=== PATIENT | male | born 1935 | race Asian ===

== ENCOUNTER → 2016-11-03 | Outpatient (CLI) | payer MEDICARE, OTHER | END | disposition home or self-care (01) | LOC: RADPV 13:58 | PROVIDERS: ATTEND Internal Medicine | DX: I51.7 Cardiomegaly (principal); I70.0 Atherosclerosis of aorta | CPT/HCPCS: 71020 ==

== ENCOUNTER → 2017-07-03 | Outpatient (CLI) | payer MEDICARE, OTHER ==
[~2017-07-03] MED LIST: ACET-66 PO; ACLI400A2 IH; ADV250 IH; AMLO2.5T2 PO; APIX2.5T PO; ATOR40TA28 PO; BACL10TA PO; CYAN100 PO; CYAN50TA2 PO; FINA5TAB41 PO; FOLI1TAB15 PO; FURO-151 PO; FURO20TA4 PO; HYDR-4172 PO; IPRA4AER IH; ISOS30TA6 PO; LACT30L PO; LEVA15HF3 IH; PANT40TA25 PO; SIMV20TA6 PO; TAMS0.4C32 PO; TELM40 PO; VITAD1000 PO
== END | disposition home or self-care (01) ==
LOC: RADPV 10:29
PROVIDERS: ATTEND Internal Medicine
DX: I51.7 Cardiomegaly (principal); J90 Pleural effusion, not elsewhere classified; I70.0 Atherosclerosis of aorta; M47.814 Spondylosis without myelopathy or radiculopathy, thoracic region; M41.84 Other forms of scoliosis, thoracic region; Z98.890 Other specified postprocedural states; Z95.1 Presence of aortocoronary bypass graft
CPT/HCPCS: 71020

== ENCOUNTER 2017-07-30 13:51 | Inpatient (IN) | payer MEDICARE, OTHER ==
[~2017-07-30] VITALS: Ht 170.2 cm; Wt 55.6 kg
[2017-07-30] MEDS ORDERED: AMLO2.5T2 PO (14:23)
[2017-07-30] MEDS ORDERED: TELM40 PO (14:23)
[2017-07-30] MEDS ORDERED: SIMV20TA6 PO (14:23)
[2017-07-30] MEDS ORDERED: CYAN50TA2 PO (14:23)
[2017-07-30] MEDS ORDERED: FURO20TA4 PO (14:23)
[2017-07-30] MEDS ORDERED: VITAD1000 PO (14:23)
[2017-07-30] MEDS ORDERED: FOLI1TAB15 PO (14:23)
[2017-07-30] MEDS ORDERED: APIX2.5T PO (14:23)
[2017-07-30] MEDS ORDERED: LEVA15HF3 IH (14:23)
[2017-07-30 14:53] LABS: BASOPHILS % (AUTO) 0.1 % (0.0-2.0); EOSINOPHILS # (AUTO) 0.03 K/uL (0.00-0.70); EOSINOPHILS % (AUTO) 0.57 % (1.0-6.0); LYMPHOCYTES # (AUTO) 0.5 K/uL (1.0-4.8); LYMPHOCYTES % (AUTO) 8.7 % (22.0-44.0); MEAN CORPUSCULAR HEMOGLOBIN 31.4 pg (26.0-34.0); MEAN CORPUSCULAR HGB CONC 33.3 G/dL (31.0-37.0); MEAN CORPUSCULAR VOLUME 95 fL (80-100); MONOCYTES # (AUTO) 0.9 K/uL (0.1-1.0); MONOCYTES % (AUTO) 16.3 % (2.0-9.0); NEUTROPHILS % (AUTO) 74.5 % (40.0-70.0); RED BLOOD CELL COUNT(AUTO) 3.17 MIL/uL (4.50-5.90); RED CELL DISTRIBUTION WIDTH 15.8 % (11.5-14.5); WHITE BLOOD COUNT (AUTO) 5.3 K/uL (4.5-11.0)
[2017-07-30 15:06] LABS: ANION GAP 10 mmol/L (8-16); CALCIUM, TOTAL 8.8 mg/dL (8.8-10.5); CARBON DIOXIDE 24 mmol/L (22-29); CHLORIDE 103 mmol/L (98-107); CREATININE 1.57 mg/dL (0.60-1.30); GLOMERULAR FILTR. RATE CALC 43 mL/min (>60); POTASSIUM 4.5 mmol/L (3.5-5.1); SODIUM SERUM 137 mmol/L (136-145); UREA NITROGEN, BLOOD 24 mg/dL (7-18)
[2017-07-30 15:14] LABS: B-TYPE NATRIURETIC PEPTIDE 603 pg/mL (0-100)
[2017-07-30 15:24] LABS: PLATELET COUNT (AUTO) 79 K/uL (150-450)
[2017-07-30] MEDS ORDERED: ALBUTEROL SULFATE 2.5 MG/0.5 ML NEB SOLUTION NEB ONE (15:30)
[2017-07-30] MEDS ORDERED: IPRATROPIUM BROMIDE 0.5 MG/2.5 ML NEB SOLUTION NEB ONE (15:30)
[2017-07-30 15:31] LABS: ALANINE AMINOTRANSFERASE 38 U/L (12-78); ALBUMIN 3.8 g/dL (3.4-5.0); ASPARTATE AMINOTRANSFERASE 49 U/L (15-37); CREATINE KINASE, TOTAL 168 U/L (39-308); TOTAL PROTEIN, SERUM 8.6 g/dL (6.4-8.2)
[2017-07-30] MEDS ORDERED: 0.9% SODIUM CHLORIDE 5 ML NEB SOLUTION NEB ONE (15:34)
[2017-07-30 15:37] LABS: ADD UA MICROSCOPIC YES; APPEARANCE,URINE CLEAR (CLEAR); GLUCOSE, URINE (UA) NEGATIVE (NEGATIVE); KETONES,URINE NEGATIVE (NEGATIVE); LEUKOCYTE ESTERASE ,URINE NEGATIVE (NEGATIVE); OCCULT BLOOD,URINE TRACE (NEGATIVE); PROTEIN,URINE NEGATIVE (NEGATIVE)
[2017-07-30] MEDS ORDERED: CYAN100 PO (15:42)
[2017-07-30 15:43] LABS: SQUAMOUS EPITHELIAL CELL,UR Rare /LPF (None Seen)
[2017-07-30 15:46] LABS: RBC,URINE 0-2 /HPF (0-2); WBC,URINE 0-2 /HPF (0-5)
[2017-07-30] MEDS ORDERED: FUROSEMIDE 40 MG/4 ML VIAL IVP ONE (16:15)
[2017-07-30] MEDS ORDERED: 0.9% SODIUM CHLORIDE 10 ML SYRINGE IVP PRN (16:45)
[2017-07-30] MEDS ORDERED: ACETAMINOPHEN 325 MG TABLET PO PRN (16:45)
[2017-07-30] MEDS ORDERED: ONDANSETRON HCL 4 MG/2 ML VIAL IVP PRN (16:45)
[2017-07-30] MEDS ORDERED: ASPIRIN 81 MG CHEWABLE TABLET PO ONE (16:45)
[2017-07-30 18:02] VITALS: BP 151/70
[2017-07-30 19:25] VITALS: BP 100/44
[2017-07-30] MEDS: IPRATROPIUM BROMIDE 0.5 MG/2.5 ML NEB SOLUTION NEB SCH (21:44)
[2017-07-30] MEDS: ALBUTEROL SULFATE 2.5 MG/0.5 ML NEB SOLUTION NEB SCH (21:44)
[2017-07-30] MEDS: APIXABAN 2.5 MG TABLET PO SCH (22:08)
[2017-07-30 22:48] LABS: ADD UA MICROSCOPIC NO; APPEARANCE,URINE CLEAR (CLEAR); GLUCOSE, URINE (UA) NEGATIVE (NEGATIVE); KETONES,URINE NEGATIVE (NEGATIVE); LEUKOCYTE ESTERASE ,URINE NEGATIVE (NEGATIVE); OCCULT BLOOD,URINE NEGATIVE (NEGATIVE); PROTEIN,URINE NEGATIVE (NEGATIVE)
[2017-07-30 23:59] VITALS: BP 110/60
[2017-07-31] MEDS: IPRATROPIUM BROMIDE 0.5 MG/2.5 ML NEB SOLUTION NEB SCH ×4 (02:33→21:36)
[2017-07-31] MEDS: ALBUTEROL SULFATE 2.5 MG/0.5 ML NEB SOLUTION NEB SCH ×4 (02:33→21:36)
[2017-07-31 04:37] VITALS: BP 123/68
[2017-07-31 06:25] LABS: BASOPHILS # (AUTO) 0.02 K/uL (0.00-0.20); BASOPHILS % (AUTO) 0.4 % (0.0-2.0); EOSINOPHILS # (AUTO) 0.06 K/uL (0.00-0.70); EOSINOPHILS % (AUTO) 1.25 % (1.0-6.0); HEMATOCRIT 26.6 % (41-53); HEMOGLOBIN 8.8 g/dL (13.5-17.5); LYMPHOCYTES # (AUTO) 0.6 K/uL (1.0-4.8); LYMPHOCYTES % (AUTO) 12.2 % (22.0-44.0); MEAN CORPUSCULAR HEMOGLOBIN 31.3 pg (26.0-34.0); MEAN CORPUSCULAR VOLUME 95 fL (80-100); MONOCYTES # (AUTO) 0.9 K/uL (0.1-1.0); MONOCYTES % (AUTO) 18.4 % (2.0-9.0); NEUTROPHILS # (AUTO) 3.2 K/uL (1.8-7.7); NEUTROPHILS % (AUTO) 67.8 % (40.0-70.0); PLATELET COUNT (AUTO) 71 K/uL (150-450); RED BLOOD CELL COUNT(AUTO) 2.81 MIL/uL (4.50-5.90); WHITE BLOOD COUNT (AUTO) 4.7 K/uL (4.5-11.0)
[2017-07-31 06:32] LABS: BILIRUBIN,TOTAL 0.6 mg/dL (0.1-1.0); CALCIUM, TOTAL 8.2 mg/dL (8.8-10.5); CREATININE 1.61 mg/dL (0.60-1.30); POTASSIUM 4.4 mmol/L (3.5-5.1); TOTAL PROTEIN, SERUM 6.9 g/dL (6.4-8.2)
[2017-07-31] MEDS ORDERED: INFLUENZA VIRUS VACCINE QVS 2017-18 (3YR+)/PF 60 MCG/0.5 ML SYRINGE IM ONE (07:45)
[2017-07-31] MEDS: AmLODIPine BESYLATE 2.5 MG TABLET PO SCH (08:30)
[2017-07-31] MEDS: FOLIC ACID 1 MG TABLET PO SCH (08:31)
[2017-07-31] MEDS: TELMISARTAN 40 MG TABLET PO SCH (08:31)
[2017-07-31] MEDS: APIXABAN 2.5 MG TABLET PO SCH ×2 (08:31→20:17)
[2017-07-31] MEDS: SIMVASTATIN 20 MG TABLET PO SCH (08:31)
[2017-07-31] MEDS: CHOLECALCIFEROL (VIT D3) 1,000 UNITS TABLET PO SCH (08:31)
[2017-07-31 08:56] VITALS: BP 111/58
[2017-07-31] MEDS ORDERED: FUROSEMIDE 20 MG TABLET PO SCH (09:00)
[2017-07-31] MEDS: CYANOCOBALAMIN 100 MCG TABLET PO SCH (09:19)
[2017-07-31 09:29] LABS: BASOPHILS # (AUTO) 0.07 K/uL (0.00-0.20); BASOPHILS % (AUTO) 1.5 % (0.0-2.0); EOSINOPHILS # (AUTO) 0.04 K/uL (0.00-0.70); EOSINOPHILS % (AUTO) 0.89 % (1.0-6.0); HEMATOCRIT 27.1 % (41-53); LYMPHOCYTES # (AUTO) 0.6 K/uL (1.0-4.8); LYMPHOCYTES % (AUTO) 12.7 % (22.0-44.0); MEAN CORPUSCULAR HEMOGLOBIN 31.6 pg (26.0-34.0); MEAN CORPUSCULAR HGB CONC 33.3 G/dL (31.0-37.0); MEAN CORPUSCULAR VOLUME 95 fL (80-100); MONOCYTES # (AUTO) 0.8 K/uL (0.1-1.0); MONOCYTES % (AUTO) 15.6 % (2.0-9.0); NEUTROPHILS # (AUTO) 3.4 K/uL (1.8-7.7); NEUTROPHILS % (AUTO) 69.3 % (40.0-70.0); PLATELET COUNT (AUTO) 71 K/uL (150-450); RED BLOOD CELL COUNT(AUTO) 2.86 MIL/uL (4.50-5.90); RED CELL DISTRIBUTION WIDTH 15.6 % (11.5-14.5); WHITE BLOOD COUNT (AUTO) 4.8 K/uL (4.5-11.0)
[2017-07-31 10:19] LABS: PROCALCITONIN (PCT) 0.12 ng/mL (<0.50)
[2017-07-31 11:11] LABS: VITAMIN B12 LEVEL 664 pg/mL (211-911)
[2017-07-31 11:59] VITALS: BP 119/66
[2017-07-31] MEDS: FUROSEMIDE 20 MG/2 ML VIAL IVP SCH (15:42)
[2017-07-31 16:23] VITALS: BP 116/63
[2017-07-31] MEDS ORDERED: ZOLPIDEM TARTRATE 5 MG TABLET PO PRN (18:00)
[2017-07-31] MEDS ORDERED: IPRATROPIUM BROMIDE 0.5 MG/2.5 ML NEB SOLUTION NEB PRN (18:00)
[2017-07-31] MEDS ORDERED: ONDANSETRON HCL 4 MG/2 ML VIAL IVP PRN (18:00)
[2017-07-31] MEDS ORDERED: HYDROCODONE/ACETAMINOPHEN 5-325 MG TABLET PO PRN (18:00)
[2017-07-31] MEDS ORDERED: 0.9% SODIUM CHLORIDE 10 ML SYRINGE IVP PRN ×2 (18:00)
[2017-07-31] MEDS ORDERED: ALBUTEROL SULFATE 2.5 MG/0.5 ML NEB SOLUTION NEB PRN (18:00)
[2017-07-31] MEDS ORDERED: ACETAMINOPHEN 325 MG TABLET PO PRN (18:00)
[2017-07-31] MEDS: PANTOPRAZOLE SODIUM 40 MG DR TABLET PO SCH (18:12)
[2017-07-31] MEDS: DOCUSATE SODIUM 250 MG CAPSULE PO SCH (20:19)
[2017-07-31 21:16] VITALS: BP 139/59
[2017-08-01 01:14] VITALS: BP 130/65
[2017-08-01] MEDS: FUROSEMIDE 20 MG/2 ML VIAL IVP SCH ×3 (01:14→17:46)
[2017-08-01] MEDS: ALBUTEROL SULFATE 2.5 MG/0.5 ML NEB SOLUTION NEB SCH ×4 (02:00→19:48)
[2017-08-01] MEDS: IPRATROPIUM BROMIDE 0.5 MG/2.5 ML NEB SOLUTION NEB SCH ×4 (02:00→19:48)
[2017-08-01 05:51] VITALS: BP 124/70
[2017-08-01] MEDS: PANTOPRAZOLE SODIUM 40 MG DR TABLET PO SCH (06:00)
[2017-08-01 07:48] VITALS: BP 132/66
[2017-08-01] MEDS: AmLODIPine BESYLATE 2.5 MG TABLET PO SCH (09:02)
[2017-08-01] MEDS: SIMVASTATIN 20 MG TABLET PO SCH (09:02)
[2017-08-01] MEDS: FOLIC ACID 1 MG TABLET PO SCH (09:02)
[2017-08-01] MEDS: APIXABAN 2.5 MG TABLET PO SCH ×2 (09:02→20:24)
[2017-08-01] MEDS: DOCUSATE SODIUM 250 MG CAPSULE PO SCH ×3 (09:02→20:21)
[2017-08-01] MEDS: CYANOCOBALAMIN 100 MCG TABLET PO SCH (09:03)
[2017-08-01] MEDS: TELMISARTAN 40 MG TABLET PO SCH (09:03)
[2017-08-01] MEDS: CHOLECALCIFEROL (VIT D3) 1,000 UNITS TABLET PO SCH (09:03)
[2017-08-01 09:59] LABS: BASOPHILS % (AUTO) 0.4 % (0.0-2.0); EOSINOPHILS % (AUTO) 1.7 % (1.0-6.0); HEMATOCRIT 30.1 % (41-53); HEMOGLOBIN 10.2 g/dL (13.5-17.5); LYMPHOCYTES # (AUTO) 0.7 K/uL (1.0-4.8); LYMPHOCYTES % (AUTO) 12.7 % (22.0-44.0); MEAN CORPUSCULAR HEMOGLOBIN 31.5 pg (26.0-34.0); MEAN CORPUSCULAR VOLUME 93 fL (80-100); MONOCYTES # (AUTO) 0.7 K/uL (0.1-1.0); MONOCYTES % (AUTO) 11.9 % (2.0-9.0); NEUTROPHILS # (AUTO) 4.1 K/uL (1.8-7.7); NEUTROPHILS % (AUTO) 73.3 % (40.0-70.0); PLATELET COUNT (AUTO) 88 K/uL (150-450); RED BLOOD CELL COUNT(AUTO) 3.24 MIL/uL (4.50-5.90); RED CELL DISTRIBUTION WIDTH 15.7 % (11.5-14.5); WHITE BLOOD COUNT (AUTO) 5.6 K/uL (4.5-11.0)
[2017-08-01 10:27] LABS: CALCIUM, TOTAL 8.5 mg/dL (8.8-10.5); CHOL/HDL RATIO 1.6 (4.2-7.3); CREATININE 1.87 mg/dL (0.60-1.30); POTASSIUM 4.5 mmol/L (3.5-5.1); THYROID STIMULATING HORMONE 4.46 uIU/mL (0.36-3.74)
[2017-08-01 10:57] VITALS: BP 106/66
[2017-08-01 15:01] VITALS: BP 116/58
[2017-08-01 20:09] VITALS: BP 104/50
[2017-08-02] VITALS (7 sets, daily range): BP systolic 97–125; BP diastolic 48–72
[2017-08-02] MEDS: FUROSEMIDE 20 MG/2 ML VIAL IVP SCH ×3 (00:59→08:29)
[2017-08-02] MEDS: ALBUTEROL SULFATE 2.5 MG/0.5 ML NEB SOLUTION NEB SCH ×4 (01:39→20:28)
[2017-08-02] MEDS: IPRATROPIUM BROMIDE 0.5 MG/2.5 ML NEB SOLUTION NEB SCH ×4 (01:39→20:28)
[2017-08-02] MEDS: PANTOPRAZOLE SODIUM 40 MG DR TABLET PO SCH (05:56)
[2017-08-02 06:57] LABS: ALBUMIN 3.6 g/dL (3.4-5.0); BILIRUBIN,TOTAL 0.7 mg/dL (0.1-1.0); CALCIUM, TOTAL 8.7 mg/dL (8.8-10.5); CREATININE 2.01 mg/dL (0.60-1.30); POTASSIUM 4.6 mmol/L (3.5-5.1); TOTAL PROTEIN, SERUM 8.3 g/dL (6.4-8.2)
[2017-08-02] MEDS: CYANOCOBALAMIN 100 MCG TABLET PO SCH (08:29)
[2017-08-02] MEDS: FOLIC ACID 1 MG TABLET PO SCH (08:29)
[2017-08-02] MEDS: CHOLECALCIFEROL (VIT D3) 1,000 UNITS TABLET PO SCH (08:29)
[2017-08-02] MEDS: SIMVASTATIN 20 MG TABLET PO SCH (08:29)
[2017-08-02] MEDS: TELMISARTAN 40 MG TABLET PO SCH (08:29)
[2017-08-02] MEDS: APIXABAN 2.5 MG TABLET PO SCH ×2 (08:29→20:14)
[2017-08-02] MEDS: DOCUSATE SODIUM 250 MG CAPSULE PO SCH ×3 (08:29→20:14)
[2017-08-02] MEDS: AmLODIPine BESYLATE 2.5 MG TABLET PO SCH (09:00)
[2017-08-02] MEDS: FINASTERIDE 5 MG TABLET PO SCH (14:03)
[2017-08-02] MEDS: TAMSULOSIN HCL 0.4 MG CAPSULE PO SCH (14:03)
[2017-08-03] VITALS (7 sets, daily range): BP systolic 106–124; BP diastolic 53–63
[2017-08-03] MEDS: ALBUTEROL SULFATE 2.5 MG/0.5 ML NEB SOLUTION NEB SCH ×4 (02:00→19:52)
[2017-08-03] MEDS: IPRATROPIUM BROMIDE 0.5 MG/2.5 ML NEB SOLUTION NEB SCH ×4 (02:00→19:52)
[2017-08-03] MEDS: PANTOPRAZOLE SODIUM 40 MG DR TABLET PO SCH (06:08)
[2017-08-03 07:20] LABS: BILIRUBIN,TOTAL 0.5 mg/dL (0.1-1.0); CALCIUM, TOTAL 8.2 mg/dL (8.8-10.5); CREATININE 1.79 mg/dL (0.60-1.30); MAGNESIUM 2.4 mg/dL (1.80-2.40); PHOSPHORUS 4.1 mg/dL (2.5-4.9); POTASSIUM 4.9 mmol/L (3.5-5.1); TOTAL PROTEIN, SERUM 7.1 g/dL (6.4-8.2)
[2017-08-03] MEDS: CYANOCOBALAMIN 100 MCG TABLET PO SCH (08:52)
[2017-08-03] MEDS: FOLIC ACID 1 MG TABLET PO SCH (08:53)
[2017-08-03] MEDS: AmLODIPine BESYLATE 2.5 MG TABLET PO SCH (08:53)
[2017-08-03] MEDS: TAMSULOSIN HCL 0.4 MG CAPSULE PO SCH (08:53)
[2017-08-03] MEDS: DOCUSATE SODIUM 250 MG CAPSULE PO SCH ×3 (08:53→20:34)
[2017-08-03] MEDS: APIXABAN 2.5 MG TABLET PO SCH ×2 (08:53→20:34)
[2017-08-03] MEDS: SIMVASTATIN 20 MG TABLET PO SCH (08:53)
[2017-08-03] MEDS: CHOLECALCIFEROL (VIT D3) 1,000 UNITS TABLET PO SCH (08:53)
[2017-08-03] MEDS: FINASTERIDE 5 MG TABLET PO SCH (08:53)
[2017-08-03 11:57] LABS: GLUCOSE, URINE (UA) NEGATIVE (NEGATIVE); KETONES,URINE NEGATIVE (NEGATIVE); LEUKOCYTE ESTERASE ,URINE SMALL (NEGATIVE); OCCULT BLOOD,URINE LARGE (NEGATIVE); PROTEIN,URINE SEE CONFIRM (NEGATIVE)
[2017-08-03 12:06] LABS: ADD UA MICROSCOPIC YES; APPEARANCE,URINE HAZY (CLEAR)
[2017-08-03 12:13] LABS: SULFOSALICYLIC ACID,URINE 2+ (Negative)
[2017-08-03 12:14] LABS: RBC,URINE 51-100 /HPF (0-2)
[2017-08-03 12:15] LABS: SQUAMOUS EPITHELIAL CELL,UR Few /LPF (None Seen)
[2017-08-03] MEDS ORDERED: CefTRIAXone 1 GM/DEXTROSE 50 ML IV SCH (18:45)
[2017-08-03] MEDS ORDERED: SODIUM CHLORIDE 0.9% 100 ML ONE (18:56)
[2017-08-04] MEDS: ALBUTEROL SULFATE 2.5 MG/0.5 ML NEB SOLUTION NEB SCH ×2 (01:54→08:02)
[2017-08-04] MEDS: IPRATROPIUM BROMIDE 0.5 MG/2.5 ML NEB SOLUTION NEB SCH ×2 (01:54→08:01)
[2017-08-04 04:17] VITALS: BP 120/68
[2017-08-04] MEDS: PANTOPRAZOLE SODIUM 40 MG DR TABLET PO SCH (06:17)
[2017-08-04 07:12] LABS: ALBUMIN 2.9 g/dL (3.4-5.0); BILIRUBIN,TOTAL 0.4 mg/dL (0.1-1.0); CALCIUM, TOTAL 7.9 mg/dL (8.8-10.5); CREATININE 1.64 mg/dL (0.60-1.30); POTASSIUM 4.5 mmol/L (3.5-5.1); TOTAL PROTEIN, SERUM 6.9 g/dL (6.4-8.2)
[2017-08-04 07:56] LABS: APPEARANCE,URINE CLOUDY (CLEAR); GLUCOSE, URINE (UA) NEGATIVE (NEGATIVE); KETONES,URINE NEGATIVE (NEGATIVE); LEUKOCYTE ESTERASE ,URINE SMALL (NEGATIVE); OCCULT BLOOD,URINE LARGE (NEGATIVE); PROTEIN,URINE SEE CONFIRM (NEGATIVE)
[2017-08-04 08:09] VITALS: BP 103/46
[2017-08-04 08:28] LABS: ADD UA MICROSCOPIC YES
[2017-08-04 08:29] LABS: RBC,URINE >100 /HPF (0-2)
[2017-08-04 08:31] LABS: WBC,URINE 26-50 /HPF (0-5)
[2017-08-04 08:32] LABS: SQUAMOUS EPITHELIAL CELL,UR Few /LPF (None Seen)
[2017-08-04] MEDS ORDERED: ALBUTEROL SULFATE 2.5 MG/0.5 ML NEB SOLUTION NEB PRN (09:00)
[2017-08-04] MEDS: DOCUSATE SODIUM 250 MG CAPSULE PO SCH (09:14)
[2017-08-04] MEDS: SIMVASTATIN 20 MG TABLET PO SCH (09:14)
[2017-08-04] MEDS: FOLIC ACID 1 MG TABLET PO SCH (09:14)
[2017-08-04] MEDS: CHOLECALCIFEROL (VIT D3) 1,000 UNITS TABLET PO SCH (09:14)
[2017-08-04] MEDS: CYANOCOBALAMIN 100 MCG TABLET PO SCH (09:14)
[2017-08-04] MEDS: AmLODIPine BESYLATE 2.5 MG TABLET PO SCH (09:14)
[2017-08-04] MEDS: TAMSULOSIN HCL 0.4 MG CAPSULE PO SCH (09:14)
[2017-08-04] MEDS: APIXABAN 2.5 MG TABLET PO SCH (09:14)
[2017-08-04] MEDS: FINASTERIDE 5 MG TABLET PO SCH (09:14)
[2017-08-04 11:05] VITALS: BP 108/53
[2017-08-04] MEDS ORDERED: BENZONATATE 100 MG CAPSULE PO PRN (11:15)
[2017-08-04] MEDS ORDERED: FINA5TAB41 PO (13:28)
[2017-08-04] MEDS ORDERED: TAMS0.4C32 PO (13:28)
[2017-08-04] MEDS ORDERED: ADV250 IH (13:28)
[2017-08-04] MEDS ORDERED: ACLI400A2 IH (13:29)
[2017-08-04 15:15] VITALS: BP 116/51
[2017-10-20] MEDS ORDERED: IPRA4AER IH (06:48)
[2017-10-20] MEDS ORDERED: ATOR40TA28 PO (06:48)
[2017-10-22] MEDS ORDERED: ACET-66 PO (10:07)
[2017-10-22] MEDS ORDERED: PANT40TA25 PO (10:08)
[2017-10-22] MEDS ORDERED: LACT30L PO (10:08)
== END 2017-08-04 16:15 | disposition home or self-care (01) | DRG 291 ==
LOC: EMS 13:51 → 5N 16:30
PROVIDERS: ADMIT Internal Medicine; ATTEND Internal Medicine
DX: I13.0 Hypertensive heart and chronic kidney disease with heart failure and stage 1 through stage 4 chronic kidney disease, or unspecified chronic kidney disease (principal); I50.33 Acute on chronic diastolic (congestive) heart failure; N17.9 Acute kidney failure, unspecified; D69.6 Thrombocytopenia, unspecified; I27.23 Pulmonary hypertension due to lung diseases and hypoxia; I48.0 Paroxysmal atrial fibrillation; I08.3 Combined rheumatic disorders of mitral, aortic and tricuspid valves; N13.8 Other obstructive and reflux uropathy; N18.3 Chronic kidney disease, stage 3 (moderate); J44.9 Chronic obstructive pulmonary disease, unspecified; I48.2 Chronic atrial fibrillation; I25.10 Atherosclerotic heart disease of native coronary artery without angina pectoris; D50.9 Iron deficiency anemia, unspecified; E78.00 Pure hypercholesterolemia, unspecified; D53.9 Nutritional anemia, unspecified; E55.9 Vitamin D deficiency, unspecified; E78.5 Hyperlipidemia, unspecified; I87.2 Venous insufficiency (chronic) (peripheral); N40.1 Benign prostatic hyperplasia with lower urinary tract symptoms; R33.8 Other retention of urine; Z79.01 Long term (current) use of anticoagulants; Z95.1 Presence of aortocoronary bypass graft; Z79.899 Other long term (current) drug therapy; Z82.49 Family history of ischemic heart disease and other diseases of the circulatory system; Z87.891 Personal history of nicotine dependence
CPT/HCPCS: 76770; 82271; 82308; 82570; 82607; 82746; 83036; 83540; 83550; 83735; 84100; 84145; 84153; 84300; 84443; 84540; 87040; 87086; 93005; 94640; 96374; 97162; 97530; 99285; J0696; J1940; J7050

== ENCOUNTER 2017-09-27 16:04 | Inpatient (IN) | payer MEDICARE, OTHER ==
[~2017-09-27] VITALS: Ht 170.2 cm; Wt 60.8 kg
[~2017-09-27 16:04] MED LIST changes: -ACET-66 PO; -AMLO2.5T2 PO; -ATOR40TA28 PO; -BACL10TA PO; -CYAN50TA2 PO; -FURO-151 PO; -HYDR-4172 PO; -IPRA4AER IH; -ISOS30TA6 PO; -LACT30L PO; -PANT40TA25 PO
[2017-09-27 18:33] LABS: BASOPHILS # (AUTO) 0.03 K/uL (0.00-0.20); BASOPHILS % (AUTO) 0.6 % (0.0-2.0); EOSINOPHILS # (AUTO) 0.18 K/uL (0.00-0.70); EOSINOPHILS % (AUTO) 2.91 % (1.0-6.0); HEMATOCRIT 30.2 % (41-53); LYMPHOCYTES # (AUTO) 0.6 K/uL (1.0-4.8); LYMPHOCYTES % (AUTO) 9.8 % (22.0-44.0); MEAN CORPUSCULAR HEMOGLOBIN 31.8 pg (26.0-34.0); MEAN CORPUSCULAR HGB CONC 33.1 G/dL (31.0-37.0); MEAN CORPUSCULAR VOLUME 96 fL (80-100); MONOCYTES # (AUTO) 0.8 K/uL (0.1-1.0); MONOCYTES % (AUTO) 12.2 % (2.0-9.0); NEUTROPHILS # (AUTO) 4.6 K/uL (1.8-7.7); NEUTROPHILS % (AUTO) 74.5 % (40.0-70.0); PLATELET COUNT (AUTO) 101 K/uL (150-450); RED BLOOD CELL COUNT(AUTO) 3.14 MIL/uL (4.50-5.90); RED CELL DISTRIBUTION WIDTH 16.1 % (11.5-14.5)
[2017-09-27 19:15] LABS: ANION GAP 11 mmol/L (8-16); CALCIUM, TOTAL 8.9 mg/dL (8.8-10.5); CARBON DIOXIDE 23 mmol/L (22-29); CHLORIDE 104 mmol/L (98-107); CREATININE 2.22 mg/dL (0.60-1.30); GLOMERULAR FILTR. RATE CALC 29 mL/min (>60); GLUCOSE,RANDOM 111 mg/dL (70-110); POTASSIUM 4.7 mmol/L (3.5-5.1); SODIUM SERUM 138 mmol/L (136-145); UREA NITROGEN, BLOOD 48 mg/dL (7-18)
[2017-09-27 19:22] LABS: INR 1.1 (0.9-1.1)
[2017-09-27 19:31] LABS: B-TYPE NATRIURETIC PEPTIDE 455 pg/mL (0-100)
[2017-09-27 19:40] LABS: ALANINE AMINOTRANSFERASE 35 U/L (12-78); ALBUMIN 3.6 g/dL (3.4-5.0); ALKALINE PHOSPHATASE 218 U/L (46-116); ASPARTATE AMINOTRANSFERASE 43 U/L (15-37); BILIRUBIN,TOTAL 0.9 mg/dL (0.1-1.0); CREATINE KINASE MB 3.7 ng/mL (0-5); CREATINE KINASE, TOTAL 200 U/L (39-308); TOTAL PROTEIN, SERUM 8.4 g/dL (6.4-8.2)
[2017-09-27 20:23] LABS: APPEARANCE,URINE CLEAR (CLEAR); BILIRUBIN,URINE NEGATIVE (NEGATIVE); GLUCOSE, URINE (UA) NEGATIVE (NEGATIVE); KETONES,URINE NEGATIVE (NEGATIVE); LEUKOCYTE ESTERASE ,URINE NEGATIVE (NEGATIVE); NITRATE,URINE NEGATIVE (NEGATIVE); OCCULT BLOOD,URINE NEGATIVE (NEGATIVE); PH,URINE 5.5 (5.0-8.0); PROTEIN,URINE NEGATIVE (NEGATIVE); UROBILINOGEN,URINE 0.2 mg/dL (<=1.0)
[2017-09-27] MEDS ORDERED: IPRATROPIUM BROMIDE 0.5 MG/2.5 ML NEB SOLUTION NEB ONE (20:30)
[2017-09-27] MEDS ORDERED: CefTRIAXone 1 GM/DEXTROSE 50 ML IV ONE (20:30)
[2017-09-27] MEDS ORDERED: ALBUTEROL SULFATE 5 MG/ML 20 ML NEB SOLN [BULK] NEB ONE (20:30)
[2017-09-27] MEDS ORDERED: OSELTAMIVIR PHOSPHATE 75 MG CAPSULE PO ONE (20:30)
[2017-09-27] MEDS ORDERED: MethylPREDNISolone SOD SUCC 125 MG/2 ML VIAL IVP ONE (20:30)
[2017-09-27] MEDS ORDERED: NITROGLYCERIN 2% (1 GM=INCH) PACKET TP ONE (20:30)
[2017-09-27] MEDS ORDERED: ACETAMINOPHEN 325 MG TABLET PO PRN (20:30)
[2017-09-27] MEDS ORDERED: AZITHROMYCIN 500 MG/NS 250 ML IV ONE (20:30)
[2017-09-27] MEDS ORDERED: 0.9% SODIUM CHLORIDE 10 ML SYRINGE IVP PRN (20:30)
[2017-09-27] MEDS ORDERED: FUROSEMIDE 40 MG/4 ML VIAL IVP ONE (20:30)
[2017-09-27] MEDS ORDERED: 0.9% SODIUM CHLORIDE 5 ML NEB SOLUTION NEB ONE (20:31)
[2017-09-27 21:42] LABS: INFLUENZA TYPE A NEGATIVE FOR TYPE A (NEGATIVE); INFLUENZA TYPE B NEGATIVE FOR TYPE B (NEGATIVE)
[2017-09-27] MEDS: ALBUTEROL SULFATE 2.5 MG/0.5 ML NEB SOLUTION NEB SCH (22:58)
[2017-09-27] MEDS: IPRATROPIUM BROMIDE 0.5 MG/2.5 ML NEB SOLUTION NEB SCH (22:58)
[2017-09-28] VITALS (7 sets, daily range): BP systolic 106–144; BP diastolic 58–75
[2017-09-28] MEDS: ALBUTEROL SULFATE 2.5 MG/0.5 ML NEB SOLUTION NEB SCH ×2 (04:40→07:51)
[2017-09-28] MEDS: IPRATROPIUM BROMIDE 0.5 MG/2.5 ML NEB SOLUTION NEB SCH ×2 (04:40→07:51)
[2017-09-28 08:12] LABS: EOSINOPHILS % (AUTO) 0.04 % (1.0-6.0); HEMATOCRIT 29.6 % (41-53); HEMOGLOBIN 9.8 g/dL (13.5-17.5); LYMPHOCYTES # (AUTO) 0.1 K/uL (1.0-4.8); MEAN CORPUSCULAR VOLUME 97 fL (80-100); MONOCYTES % (AUTO) 0.5 % (2.0-9.0); NEUTROPHILS # (AUTO) 4.2 K/uL (1.8-7.7); PLATELET COUNT (AUTO) 89 K/uL (150-450); RED BLOOD CELL COUNT(AUTO) 3.05 MIL/uL (4.50-5.90); RED CELL DISTRIBUTION WIDTH 16.8 % (11.5-14.5)
[2017-09-28 08:22] LABS: NEUTROPHILS % (AUTO) 96.4 % (40.0-70.0)
[2017-09-28 08:54] LABS: ALBUMIN 3.5 g/dL (3.4-5.0); BILIRUBIN,TOTAL 0.8 mg/dL (0.1-1.0); CALCIUM, TOTAL 8.5 mg/dL (8.8-10.5); CREATININE 2.54 mg/dL (0.60-1.30); TOTAL PROTEIN, SERUM 8.7 g/dL (6.4-8.2)
[2017-09-28] MEDS ORDERED: [UNRECOGNIZED DRUG - OTHER] IH SCH (10:15)
[2017-09-28] MEDS ORDERED: FUROSEMIDE 20 MG TABLET PO SCH (10:15)
[2017-09-28] MEDS: FINASTERIDE 5 MG TABLET PO SCH (11:14)
[2017-09-28] MEDS: APIXABAN 2.5 MG TABLET PO SCH ×2 (11:14→20:39)
[2017-09-28] MEDS: CHOLECALCIFEROL (VIT D3) 1,000 UNITS TABLET PO SCH (11:14)
[2017-09-28] MEDS: FOLIC ACID 1 MG TABLET PO SCH (11:14)
[2017-09-28] MEDS: CYANOCOBALAMIN 100 MCG TABLET PO SCH (11:14)
[2017-09-28] MEDS: TIOTROPIUM BROMIDE 18 MCG/INH HANDIHALER [5] IH SCH (13:21)
[2017-09-28] MEDS: FUROSEMIDE 40 MG/4 ML VIAL IVP SCH ×2 (13:21→20:30)
[2017-09-28] MEDS ORDERED: HEPARIN SODIUM 25000 UNITS/D5W 250 ML IV PRN (14:41)
[2017-09-28] MEDS ORDERED: MAGNESIUM SULFATE 4 GM/WATER 100 ML IV PRN (14:45)
[2017-09-28] MEDS ORDERED: HEPARIN SODIUM,PORCINE 5,000 UNITS/ML VIAL IVP ONE (14:45)
[2017-09-28] MEDS ORDERED: MAGNESIUM SULFATE 2 GM in DEXTROSE 5%-WATER 50 ML IV PRN (14:45)
[2017-09-28] MEDS ORDERED: HEPARIN SODIUM,PORCINE 5,000 UNITS/ML VIAL IVP PRN ×2 (14:45)
[2017-09-28] MEDS ORDERED: MAGNESIUM OXIDE 400 MG TABLET PO PRN (14:45)
[2017-09-28] MEDS: ISOSORBIDE DINITRATE 10 MG TABLET PO SCH (15:32)
[2017-09-28] MEDS: DOCUSATE SODIUM 250 MG CAPSULE PO SCH ×2 (15:33→20:39)
[2017-09-28] MEDS: HydrALAZINE HCL 10 MG TABLET PO SCH ×2 (15:33→21:00)
[2017-09-28 16:20] LABS: ALBUMIN 3.3 g/dL (3.4-5.0); MAGNESIUM 2.6 mg/dL (1.80-2.40)
[2017-09-28 16:21] LABS: EOSINOPHILS % (AUTO) 0 % (1.0-6.0); HEMATOCRIT 26.3 % (41-53); HEMOGLOBIN 8.9 g/dL (13.5-17.5); LYMPHOCYTES # (AUTO) 0.3 K/uL (1.0-4.8); LYMPHOCYTES % (AUTO) 2.6 % (22.0-44.0); MEAN CORPUSCULAR HEMOGLOBIN 31.8 pg (26.0-34.0); MEAN CORPUSCULAR HGB CONC 33.8 G/dL (31.0-37.0); MEAN CORPUSCULAR VOLUME 94 fL (80-100); MONOCYTES # (AUTO) 0.7 K/uL (0.1-1.0); MONOCYTES % (AUTO) 5.3 % (2.0-9.0); NEUTROPHILS # (AUTO) 11.9 K/uL (1.8-7.7); PLATELET COUNT (AUTO) 93 K/uL (150-450)
[2017-09-28 16:22] LABS: NEUTROPHILS % (AUTO) 92.1 % (40.0-70.0)
[2017-09-28 16:34] LABS: INR 1.3 (0.9-1.1); PROTHROMBIN TIME 13.3 SEC (9.4-11.6)
[2017-09-28] MEDS: SIMVASTATIN 20 MG TABLET PO SCH (20:39)
[2017-09-28] MEDS: TAMSULOSIN HCL 0.4 MG CAPSULE PO SCH (20:39)
[2017-09-28] MEDS ORDERED: SODIUM CHLORIDE 0.9% 100 ML ONE (21:24)
[2017-09-28] MEDS: CefTRIAXone 1 GM/DEXTROSE 50 ML IV SCH (21:27)
[2017-09-28] MEDS: AZITHROMYCIN 250 MG in SODIUM CHLORIDE 0.9% 150 ML IV SCH (22:44)
[2017-09-29] MEDS: ISOSORBIDE DINITRATE 10 MG TABLET PO SCH ×4 (00:18→21:16)
[2017-09-29 04:52] VITALS: BP 118/59
[2017-09-29 07:07] LABS: EOSINOPHILS # (AUTO) 0.12 K/uL (0.00-0.70); EOSINOPHILS % (AUTO) 0.96 % (1.0-6.0); HEMATOCRIT 25.1 % (41-53); HEMOGLOBIN 8.5 g/dL (13.5-17.5); LYMPHOCYTES # (AUTO) 0.6 K/uL (1.0-4.8); LYMPHOCYTES % (AUTO) 4.9 % (22.0-44.0); MEAN CORPUSCULAR HEMOGLOBIN 32.2 pg (26.0-34.0); MEAN CORPUSCULAR HGB CONC 33.9 G/dL (31.0-37.0); MEAN CORPUSCULAR VOLUME 95 fL (80-100); MONOCYTES # (AUTO) 0.7 K/uL (0.1-1.0); MONOCYTES % (AUTO) 5.2 % (2.0-9.0); NEUTROPHILS # (AUTO) 11.1 K/uL (1.8-7.7); PLATELET COUNT (AUTO) 86 K/uL (150-450); RED BLOOD CELL COUNT(AUTO) 2.64 MIL/uL (4.50-5.90); RED CELL DISTRIBUTION WIDTH 16.4 % (11.5-14.5)
[2017-09-29 07:17] LABS: NEUTROPHILS % (AUTO) 88.9 % (40.0-70.0)
[2017-09-29 07:30] VITALS: BP 115/59
[2017-09-29] MEDS ORDERED: BACLOFEN 10 MG TABLET PO PRN (08:45)
[2017-09-29] MEDS: DOCUSATE SODIUM 250 MG CAPSULE PO SCH ×3 (09:00→21:00)
[2017-09-29 09:03] LABS: CALCIUM, TOTAL 8.5 mg/dL (8.8-10.5); CREATININE 2.16 mg/dL (0.60-1.30); MAGNESIUM 2.6 mg/dL (1.80-2.40)
[2017-09-29 09:14] LABS: POTASSIUM 5.2 mmol/L (3.5-5.1)
[2017-09-29] MEDS ORDERED: SODIUM POLYSTYRENE SULFONATE 15 GM/60 ML SUSPENSION BOTTLE PR ONE (09:30)
[2017-09-29] MEDS: TIOTROPIUM BROMIDE 18 MCG/INH HANDIHALER [5] IH SCH (09:37)
[2017-09-29] MEDS: CHOLECALCIFEROL (VIT D3) 1,000 UNITS TABLET PO SCH (09:40)
[2017-09-29] MEDS: FOLIC ACID 1 MG TABLET PO SCH (09:40)
[2017-09-29] MEDS: APIXABAN 2.5 MG TABLET PO SCH ×2 (09:41→21:15)
[2017-09-29] MEDS: FINASTERIDE 5 MG TABLET PO SCH (09:41)
[2017-09-29] MEDS: HydrALAZINE HCL 10 MG TABLET PO SCH ×3 (09:41→23:01)
[2017-09-29] MEDS: CYANOCOBALAMIN 100 MCG TABLET PO SCH (09:41)
[2017-09-29] MEDS: FUROSEMIDE 40 MG/4 ML VIAL IVP SCH ×2 (09:50→21:16)
[2017-09-29 11:22] VITALS: BP 137/77
[2017-09-29 16:00] VITALS: BP 121/72
[2017-09-29 18:17] LABS: VITAMIN B12 LEVEL 1035 pg/mL (211-911)
[2017-09-29 18:37] LABS: FOLATE SERUM > 24.0 ng/mL (5.4-)
[2017-09-29 19:35] VITALS: BP 127/66
[2017-09-29] MEDS: SIMVASTATIN 20 MG TABLET PO SCH (21:16)
[2017-09-29] MEDS: TAMSULOSIN HCL 0.4 MG CAPSULE PO SCH (21:16)
[2017-09-29] MEDS ORDERED: SODIUM CHLORIDE 0.9% 100 ML ONE (21:23)
[2017-09-29] MEDS: CefTRIAXone 1 GM/DEXTROSE 50 ML IV SCH (21:25)
[2017-09-29 23:00] VITALS: BP 121/64
[2017-09-29] MEDS: AZITHROMYCIN 250 MG in SODIUM CHLORIDE 0.9% 150 ML IV SCH (23:02)
[2017-09-30] VITALS (7 sets, daily range): BP systolic 109–136; BP diastolic 56–73
[2017-09-30] MEDS: FOLIC ACID 1 MG TABLET PO SCH (07:28)
[2017-09-30] MEDS: CYANOCOBALAMIN 100 MCG TABLET PO SCH (07:28)
[2017-09-30 07:55] LABS: BASOPHILS # (AUTO) 0.01 K/uL (0.00-0.20); BASOPHILS % (AUTO) 0.2 % (0.0-2.0); EOSINOPHILS # (AUTO) 0.36 K/uL (0.00-0.70); EOSINOPHILS % (AUTO) 3.74 % (1.0-6.0); HEMATOCRIT 29.3 % (41-53); HEMOGLOBIN 9.6 g/dL (13.5-17.5); LYMPHOCYTES # (AUTO) 0.7 K/uL (1.0-4.8); LYMPHOCYTES % (AUTO) 6.8 % (22.0-44.0); MEAN CORPUSCULAR HEMOGLOBIN 31.5 pg (26.0-34.0); MEAN CORPUSCULAR HGB CONC 32.9 G/dL (31.0-37.0); MEAN CORPUSCULAR VOLUME 96 fL (80-100); MONOCYTES # (AUTO) 0.8 K/uL (0.1-1.0); MONOCYTES % (AUTO) 8.3 % (2.0-9.0); NEUTROPHILS # (AUTO) 7.7 K/uL (1.8-7.7); PLATELET COUNT (AUTO) 106 K/uL (150-450); RED BLOOD CELL COUNT(AUTO) 3.05 MIL/uL (4.50-5.90); RED CELL DISTRIBUTION WIDTH 16.8 % (11.5-14.5)
[2017-09-30 08:08] LABS: ALBUMIN 3.5 g/dL (3.4-5.0); BILIRUBIN,TOTAL 0.8 mg/dL (0.1-1.0); CALCIUM, TOTAL 9.1 mg/dL (8.8-10.5); CREATININE 1.9 mg/dL (0.60-1.30); MAGNESIUM 2.5 mg/dL (1.80-2.40); PHOSPHORUS 4.3 mg/dL (2.5-4.9); POTASSIUM 4.5 mmol/L (3.5-5.1); TOTAL PROTEIN, SERUM 8.4 g/dL (6.4-8.2)
[2017-09-30 08:10] LABS: % IRON SATURATION 12.4 % (30-44)
[2017-09-30] MEDS: TIOTROPIUM BROMIDE 18 MCG/INH HANDIHALER [5] IH SCH (08:54)
[2017-09-30] MEDS: FUROSEMIDE 40 MG/4 ML VIAL IVP SCH ×2 (08:56→20:25)
[2017-09-30] MEDS: CHOLECALCIFEROL (VIT D3) 1,000 UNITS TABLET PO SCH (08:56)
[2017-09-30] MEDS: DOCUSATE SODIUM 250 MG CAPSULE PO SCH ×3 (08:57→20:04)
[2017-09-30] MEDS: ISOSORBIDE DINITRATE 10 MG TABLET PO SCH ×3 (08:57→20:03)
[2017-09-30] MEDS: FINASTERIDE 5 MG TABLET PO SCH (08:57)
[2017-09-30] MEDS: HydrALAZINE HCL 10 MG TABLET PO SCH ×3 (08:58→20:03)
[2017-09-30] MEDS: APIXABAN 2.5 MG TABLET PO SCH ×2 (08:58→20:03)
[2017-09-30] MEDS: CefTRIAXone 1 GM/DEXTROSE 50 ML IV SCH (19:52)
[2017-09-30] MEDS: SIMVASTATIN 20 MG TABLET PO SCH (20:03)
[2017-09-30] MEDS: TAMSULOSIN HCL 0.4 MG CAPSULE PO SCH (20:03)
[2017-09-30] MEDS: AZITHROMYCIN 250 MG in SODIUM CHLORIDE 0.9% 150 ML IV SCH (20:25)
[2017-10-01 04:16] VITALS: BP 124/60
[2017-10-01 07:15] VITALS: BP 131/57
[2017-10-01 07:32] LABS: EOSINOPHILS # (AUTO) 0.25 K/uL (0.00-0.70); EOSINOPHILS % (AUTO) 2.85 % (1.0-6.0); HEMOGLOBIN 10.2 g/dL (13.5-17.5); LYMPHOCYTES % (AUTO) 10.7 % (22.0-44.0); MEAN CORPUSCULAR HEMOGLOBIN 31.6 pg (26.0-34.0); MEAN CORPUSCULAR VOLUME 96 fL (80-100); MONOCYTES # (AUTO) 0.9 K/uL (0.1-1.0); MONOCYTES % (AUTO) 9.6 % (2.0-9.0); NEUTROPHILS # (AUTO) 6.9 K/uL (1.8-7.7); NEUTROPHILS % (AUTO) 76.9 % (40.0-70.0); PLATELET COUNT (AUTO) 105 K/uL (150-450); RED BLOOD CELL COUNT(AUTO) 3.24 MIL/uL (4.50-5.90); RED CELL DISTRIBUTION WIDTH 16.3 % (11.5-14.5)
[2017-10-01 07:41] LABS: CALCIUM, TOTAL 9.3 mg/dL (8.8-10.5); CREATININE 1.85 mg/dL (0.60-1.30); POTASSIUM 3.8 mmol/L (3.5-5.1)
[2017-10-01 07:46] LABS: MAGNESIUM 2.4 mg/dL (1.80-2.40); PHOSPHORUS 4.7 mg/dL (2.5-4.9)
[2017-10-01] MEDS: FUROSEMIDE 40 MG/4 ML VIAL IVP SCH ×2 (08:28→20:11)
[2017-10-01] MEDS: TIOTROPIUM BROMIDE 18 MCG/INH HANDIHALER [5] IH SCH (08:28)
[2017-10-01] MEDS: FOLIC ACID 1 MG TABLET PO SCH (08:29)
[2017-10-01] MEDS: ISOSORBIDE DINITRATE 10 MG TABLET PO SCH ×3 (08:29→20:11)
[2017-10-01] MEDS: HydrALAZINE HCL 10 MG TABLET PO SCH ×4 (08:30→21:00)
[2017-10-01] MEDS: APIXABAN 2.5 MG TABLET PO SCH ×2 (08:30→20:10)
[2017-10-01] MEDS: FINASTERIDE 5 MG TABLET PO SCH (08:30)
[2017-10-01] MEDS: CHOLECALCIFEROL (VIT D3) 1,000 UNITS TABLET PO SCH (08:30)
[2017-10-01] MEDS: DOCUSATE SODIUM 250 MG CAPSULE PO SCH ×3 (08:30→20:15)
[2017-10-01] MEDS: CYANOCOBALAMIN 100 MCG TABLET PO SCH (08:30)
[2017-10-01 11:43] VITALS: BP 120/60
[2017-10-01 16:13] VITALS: BP 123/59
[2017-10-01 19:58] VITALS: BP 116/56
[2017-10-01] MEDS: TAMSULOSIN HCL 0.4 MG CAPSULE PO SCH (20:10)
[2017-10-01] MEDS: SIMVASTATIN 20 MG TABLET PO SCH (20:10)
[2017-10-01 23:35] VITALS: BP 120/59
[2017-10-02 04:50] VITALS: BP 102/54
[2017-10-02 07:26] VITALS: BP 115/57
[2017-10-02 08:09] LABS: CALCIUM, TOTAL 9.1 mg/dL (8.8-10.5); CREATININE 1.72 mg/dL (0.60-1.30); POTASSIUM 3.9 mmol/L (3.5-5.1)
[2017-10-02 08:32] LABS: BASOPHILS # (AUTO) 0.01 K/uL (0.00-0.20); BASOPHILS % (AUTO) 0.1 % (0.0-2.0); EOSINOPHILS # (AUTO) 0.26 K/uL (0.00-0.70); EOSINOPHILS % (AUTO) 3.26 % (1.0-6.0); HEMATOCRIT 29.4 % (41-53); HEMOGLOBIN 9.6 g/dL (13.5-17.5); LYMPHOCYTES # (AUTO) 0.7 K/uL (1.0-4.8); MEAN CORPUSCULAR HEMOGLOBIN 31.2 pg (26.0-34.0); MEAN CORPUSCULAR HGB CONC 32.6 G/dL (31.0-37.0); MEAN CORPUSCULAR VOLUME 96 fL (80-100); MONOCYTES # (AUTO) 0.8 K/uL (0.1-1.0); MONOCYTES % (AUTO) 9.5 % (2.0-9.0); NEUTROPHILS # (AUTO) 6.4 K/uL (1.8-7.7); NEUTROPHILS % (AUTO) 79.1 % (40.0-70.0); PLATELET COUNT (AUTO) 111 K/uL (150-450); RED BLOOD CELL COUNT(AUTO) 3.07 MIL/uL (4.50-5.90); RED CELL DISTRIBUTION WIDTH 16.1 % (11.5-14.5)
[2017-10-02] MEDS: DOCUSATE SODIUM 250 MG CAPSULE PO SCH (09:38)
[2017-10-02] MEDS: CYANOCOBALAMIN 100 MCG TABLET PO SCH (09:38)
[2017-10-02] MEDS: HydrALAZINE HCL 10 MG TABLET PO SCH (09:38)
[2017-10-02] MEDS: ISOSORBIDE DINITRATE 10 MG TABLET PO SCH (09:38)
[2017-10-02] MEDS: FOLIC ACID 1 MG TABLET PO SCH (09:38)
[2017-10-02] MEDS: CHOLECALCIFEROL (VIT D3) 1,000 UNITS TABLET PO SCH (09:38)
[2017-10-02] MEDS: TIOTROPIUM BROMIDE 18 MCG/INH HANDIHALER [5] IH SCH (09:38)
[2017-10-02] MEDS: FINASTERIDE 5 MG TABLET PO SCH (09:38)
[2017-10-02] MEDS: APIXABAN 2.5 MG TABLET PO SCH (09:38)
[2017-10-02] MEDS: FUROSEMIDE 40 MG/4 ML VIAL IVP SCH (09:39)
[2017-10-02] MEDS ORDERED: FURO-151 PO (10:30)
[2017-10-02] MEDS ORDERED: HYDR-4172 PO (10:31)
[2017-10-02] MEDS ORDERED: ISOS30TA6 PO (10:34)
[2017-10-02] MEDS ORDERED: BACL10TA PO (10:34)
[2017-10-20] MEDS ORDERED: IPRA4AER IH (06:48)
[2017-10-20] MEDS ORDERED: ATOR40TA28 PO (06:48)
[2017-10-22] MEDS ORDERED: ACET-66 PO (10:07)
[2017-10-22] MEDS ORDERED: PANT40TA25 PO (10:08)
[2017-10-22] MEDS ORDERED: LACT30L PO (10:08)
== END 2017-10-02 13:15 | disposition home or self-care (01) | DRG 291 ==
LOC: EMS 16:06 → 5S 22:30
PROVIDERS: ADMIT Internal Medicine; ATTEND Internal Medicine
DX: I13.0 Hypertensive heart and chronic kidney disease with heart failure and stage 1 through stage 4 chronic kidney disease, or unspecified chronic kidney disease (principal); J18.9 Pneumonia, unspecified organism; N17.9 Acute kidney failure, unspecified; D69.6 Thrombocytopenia, unspecified; J44.0 Chronic obstructive pulmonary disease with (acute) lower respiratory infection; I48.0 Paroxysmal atrial fibrillation; J44.1 Chronic obstructive pulmonary disease with (acute) exacerbation; D63.8 Anemia in other chronic diseases classified elsewhere; D46.9 Myelodysplastic syndrome, unspecified; I50.9 Heart failure, unspecified; N18.3 Chronic kidney disease, stage 3 (moderate); E78.00 Pure hypercholesterolemia, unspecified; E78.5 Hyperlipidemia, unspecified; I08.0 Rheumatic disorders of both mitral and aortic valves; I25.10 Atherosclerotic heart disease of native coronary artery without angina pectoris; I87.2 Venous insufficiency (chronic) (peripheral); N40.1 Benign prostatic hyperplasia with lower urinary tract symptoms; Z79.01 Long term (current) use of anticoagulants; Z79.899 Other long term (current) drug therapy; Z90.49 Acquired absence of other specified parts of digestive tract; Z95.1 Presence of aortocoronary bypass graft
CPT/HCPCS: 71250; 74181; 82271; 82607; 82746; 83540; 83550; 83605; 83735; 84100; 84145; 87040; 87804; 93005; 94640; 94644; 96365; 96368; 96375; 99285; J0456; J0696; J1644; J1940; J2930; J7050

== ENCOUNTER 2018-01-21 14:18 | Inpatient (IN) | payer MEDICARE, OTHER ==
[~2018-01-21] VITALS: Ht 170.2 cm; Wt 60.8 kg
[~2018-01-21 14:18] MED LIST changes: +ACET-66 PO; -ACLI400A2 IH; -APIX2.5T PO; +ATOR40TA28 PO; +BACL10TA PO; +ERGO500014 PO; +FERR-89 PO; -FINA5TAB41 PO; +FURO-151 PO; -FURO20TA4 PO; +IPRA4AER IH; +ISOS30TA6 PO; +LACT30L PO; -LEVA15HF3 IH; +PANT40TA25 PO; -SIMV20TA6 PO; -TAMS0.4C32 PO; -TELM40 PO; -VITAD1000 PO
[2018-01-21] MEDS ORDERED: IPRA4AER IH (14:32)
[2018-01-21] MEDS ORDERED: CYAN250014 PO (14:32)
[2018-01-21] MEDS ORDERED: APIX2.5T PO (14:32)
[2018-01-21] MEDS ORDERED: CALC-1038 PO (14:32)
[2018-01-21] MEDS ORDERED: LEVO250 PO (14:32)
[2018-01-21 14:33] LABS: GLUCOSE,POINT OF CARE 163 MG/DL (70-110)
[2018-01-21 16:05] LABS: BASOPHILS % (AUTO) 0.1 % (0.0-2.0); EOSINOPHILS % (AUTO) 0.5 % (1.0-6.0); HEMATOCRIT 33.1 % (41-53); HEMOGLOBIN 11.1 g/dL (13.5-17.5); LYMPHOCYTES # (AUTO) 0.2 K/uL (1.0-4.8); LYMPHOCYTES % (AUTO) 2.1 % (22.0-44.0); MEAN CORPUSCULAR HEMOGLOBIN 30.3 pg (26.0-34.0); MEAN CORPUSCULAR HGB CONC 33.4 G/dL (31.0-37.0); MEAN CORPUSCULAR VOLUME 91 fL (80-100); MONOCYTES # (AUTO) 1.6 K/uL (0.1-1.0); NEUTROPHILS # (AUTO) 9.6 K/uL (1.8-7.7); NEUTROPHILS % (AUTO) 83.3 % (40.0-70.0); RED BLOOD CELL COUNT(AUTO) 3.64 MIL/uL (4.50-5.90); RED CELL DISTRIBUTION WIDTH 16.3 % (11.5-14.5)
[2018-01-21 16:14] LABS: ANION GAP 9 mmol/L (8-16); CALCIUM, TOTAL 8.7 mg/dL (8.8-10.5); CARBON DIOXIDE 26 mmol/L (22-29); CHLORIDE 96 mmol/L (98-107); CREATININE 3.03 mg/dL (0.60-1.30); GLOMERULAR FILTR. RATE CALC 20 mL/min (>60); GLUCOSE,RANDOM 187 mg/dL (70-110); POTASSIUM 4.5 mmol/L (3.5-5.1); SODIUM SERUM 131 mmol/L (136-145); UREA NITROGEN, BLOOD 77 mg/dL (7-18)
[2018-01-21 16:17] LABS: INR 1.1 (0.9-1.1); PROTHROMBIN TIME 11.4 SEC (9.4-11.6)
[2018-01-21] MEDS ORDERED: SODIUM CHLORIDE 0.9% 1,000 ML IV ONE (16:30)
[2018-01-21 16:34] LABS: PLATELET COUNT (AUTO) 91 K/uL (150-450)
[2018-01-21 16:35] LABS: B-TYPE NATRIURETIC PEPTIDE 308 pg/mL (0-100)
[2018-01-21 16:39] LABS: ALANINE AMINOTRANSFERASE 87 U/L (12-78); ALBUMIN 2.8 g/dL (3.4-5.0); ALKALINE PHOSPHATASE 261 U/L (46-116); ASPARTATE AMINOTRANSFERASE 50 U/L (15-37); CREATINE KINASE MB 2.2 ng/mL (0-5); CREATINE KINASE, TOTAL 98 U/L (39-308); TOTAL PROTEIN, SERUM 7.6 g/dL (6.4-8.2)
[2018-01-21 17:09] LABS: APPEARANCE,URINE CLOUDY (CLEAR); BILIRUBIN,URINE NEGATIVE (NEGATIVE); GLUCOSE, URINE (UA) NEGATIVE (NEGATIVE); KETONES,URINE NEGATIVE (NEGATIVE); LEUKOCYTE ESTERASE ,URINE NEGATIVE (NEGATIVE); NITRATE,URINE NEGATIVE (NEGATIVE); OCCULT BLOOD,URINE SMALL (NEGATIVE); PROTEIN,URINE POS 1+ (NEGATIVE); UROBILINOGEN,URINE 0.2 mg/dL (<=1.0)
[2018-01-21 17:18] LABS: BACTERIA,URINE None Seen /HPF (None Seen); RBC,URINE 0-2 /HPF (0-2); SQUAMOUS EPITHELIAL CELL,UR Few /LPF (None Seen); WBC,URINE 0-2 /HPF (0-5)
[2018-01-21] MEDS ORDERED: 0.9% SODIUM CHLORIDE 10 ML SYRINGE IVP PRN (18:15)
[2018-01-21] MEDS ORDERED: ACETAMINOPHEN 325 MG TABLET PO PRN ×2 (18:15→21:15)
[2018-01-21 20:33] VITALS: BP 142/84
[2018-01-21] MEDS ORDERED: BISACODYL 10 MG RECTAL RECTAL SUPPOSITORY PR PRN (21:15)
[2018-01-21] MEDS: CARVEDILOL 6.25 MG TABLET PO SCH (22:06)
[2018-01-21 23:57] VITALS: BP 111/53
[2018-01-22 04:41] VITALS: BP 101/52
[2018-01-22 06:49] LABS: BASOPHILS % (AUTO) 0.1 % (0.0-2.0); EOSINOPHILS % (AUTO) 0.6 % (1.0-6.0); HEMATOCRIT 29.6 % (41-53); HEMOGLOBIN 10.2 g/dL (13.5-17.5); LYMPHOCYTES # (AUTO) 0.2 K/uL (1.0-4.8); LYMPHOCYTES % (AUTO) 2.6 % (22.0-44.0); MEAN CORPUSCULAR HGB CONC 34.4 G/dL (31.0-37.0); MEAN CORPUSCULAR VOLUME 90 fL (80-100); MONOCYTES # (AUTO) 1.1 K/uL (0.1-1.0); MONOCYTES % (AUTO) 12.2 % (2.0-9.0); NEUTROPHILS # (AUTO) 7.8 K/uL (1.8-7.7); NEUTROPHILS % (AUTO) 84.5 % (40.0-70.0); PLATELET COUNT (AUTO) 88 K/uL (150-450); RED BLOOD CELL COUNT(AUTO) 3.28 MIL/uL (4.50-5.90); RED CELL DISTRIBUTION WIDTH 16.8 % (11.5-14.5)
[2018-01-22 07:14] LABS: ALBUMIN 2.2 g/dL (3.4-5.0); BILIRUBIN,TOTAL 0.7 mg/dL (0.1-1.0); CALCIUM, TOTAL 8.4 mg/dL (8.8-10.5); CREATININE 2.33 mg/dL (0.60-1.30); POTASSIUM 4.2 mmol/L (3.5-5.1); TOTAL PROTEIN, SERUM 6.7 g/dL (6.4-8.2)
[2018-01-22 07:49] VITALS: BP 102/51
[2018-01-22 11:16] VITALS: BP 107/49
[2018-01-22] MEDS: PANTOPRAZOLE SODIUM 40 MG DR TABLET PO SCH (11:43)
[2018-01-22] MEDS: APIXABAN 2.5 MG TABLET PO SCH ×2 (11:43→20:23)
[2018-01-22] MEDS: DOCUSATE SODIUM 100 MG CAPSULE PO SCH ×2 (11:43→20:23)
[2018-01-22] MEDS: CARVEDILOL 6.25 MG TABLET PO SCH ×2 (11:43→20:23)
[2018-01-22 15:56] VITALS: BP 111/54
[2018-01-22] MEDS: DEXTROSE 5%-0.9% SODIUM CHL 1,000 ML IV SCH (17:24)
[2018-01-22] MEDS: ALBUMIN HUMAN 25%-25GM/100ML 100 ML IV SCH (20:13)
[2018-01-22 20:20] VITALS: BP 115/59
[2018-01-22] MEDS ORDERED: ATORVASTATIN CALCIUM 20 MG TABLET PO SCH (21:00)
[2018-01-22] MEDS ORDERED: 0.9% SODIUM CHLORIDE 5 ML NEB SOLUTION NEB ONE (23:56)
[2018-01-22] MEDS: ALBUTEROL SULFATE 2.5 MG/0.5 ML NEB SOLUTION NEB PRN (23:58)
[2018-01-23] VITALS (7 sets, daily range): BP systolic 123–140; BP diastolic 59–80
[2018-01-23] MEDS: ALBUMIN HUMAN 25%-25GM/100ML 100 ML IV SCH ×5 (00:13→23:51)
[2018-01-23] MEDS: DEXTROSE 5%-0.9% SODIUM CHL 1,000 ML IV SCH ×2 (02:50→16:49)
[2018-01-23 07:29] LABS: CALCIUM, TOTAL 8.8 mg/dL (8.8-10.5); CREATININE 2.06 mg/dL (0.60-1.30); MAGNESIUM 2.7 mg/dL (1.80-2.40); PHOSPHORUS 3.2 mg/dL (2.5-4.9); POTASSIUM 4.1 mmol/L (3.5-5.1)
[2018-01-23 08:16] LABS: APPEARANCE,URINE CLOUDY (CLEAR); BILIRUBIN,URINE NEGATIVE (NEGATIVE); GLUCOSE, URINE (UA) NEGATIVE (NEGATIVE); KETONES,URINE NEGATIVE (NEGATIVE); LEUKOCYTE ESTERASE ,URINE NEGATIVE (NEGATIVE); NITRATE,URINE NEGATIVE (NEGATIVE); OCCULT BLOOD,URINE NEGATIVE (NEGATIVE); PROTEIN,URINE TRACE (NEGATIVE); UROBILINOGEN,URINE 0.2 mg/dL (<=1.0)
[2018-01-23 08:19] LABS: CREATININE,URINE RANDOM 101.2 mg/dL (30.0-125.0)
[2018-01-23 08:23] LABS: BACTERIA,URINE None Seen /HPF (None Seen); RBC,URINE None Seen /HPF (0-2); RENAL EPITHELIAL CELLS,URINE Few /LPF (None Seen); WBC,URINE 0-2 /HPF (0-5)
[2018-01-23] MEDS: PANTOPRAZOLE SODIUM 40 MG DR TABLET PO SCH (10:08)
[2018-01-23] MEDS: CARVEDILOL 6.25 MG TABLET PO SCH ×2 (10:08→21:37)
[2018-01-23] MEDS: APIXABAN 2.5 MG TABLET PO SCH ×2 (10:08→21:37)
[2018-01-23] MEDS: DOCUSATE SODIUM 100 MG CAPSULE PO SCH ×2 (10:08→21:37)
[2018-01-23] MEDS ORDERED: COLCHICINE 0.6 MG TABLET PO ONE (10:30)
[2018-01-23] MEDS ORDERED: COLCHICINE 0.6 MG TABLET PO PRN (13:00)
[2018-01-23] MEDS ORDERED: ACETAMINOPHEN 500 MG TABLET PO PRN (13:00)
[2018-01-23] MEDS ORDERED: BARIUM SULFATE 0.1% SUSPENSION 450 ML BOTTLE ONE (14:58)
[2018-01-23] MEDS ORDERED: IOVERSOL 350 MG/ML 100 ML VIAL ONE (16:20)
[2018-01-23] MEDS ORDERED: 0.9% SODIUM CHLORIDE 5 ML NEB SOLUTION NEB ONE (22:33)
[2018-01-23] MEDS: ALBUTEROL SULFATE 2.5 MG/0.5 ML NEB SOLUTION NEB PRN (22:34)
[2018-01-24 00:21] VITALS: BP 123/63
[2018-01-24 04:59] VITALS: BP 134/72
[2018-01-24] MEDS: ALBUMIN HUMAN 25%-25GM/100ML 100 ML IV SCH ×3 (05:25→18:46)
[2018-01-24 07:07] LABS: CALCIUM, TOTAL 9.1 mg/dL (8.8-10.5); CREATININE 1.95 mg/dL (0.60-1.30); MAGNESIUM 2.8 mg/dL (1.80-2.40); PHOSPHORUS 4.1 mg/dL (2.5-4.9); POTASSIUM 4.9 mmol/L (3.5-5.1)
[2018-01-24 07:19] VITALS: BP 123/73
[2018-01-24] MEDS: APIXABAN 2.5 MG TABLET PO SCH ×2 (08:19→21:25)
[2018-01-24] MEDS: DOCUSATE SODIUM 100 MG CAPSULE PO SCH ×2 (08:19→21:25)
[2018-01-24] MEDS: CARVEDILOL 6.25 MG TABLET PO SCH ×2 (08:19→21:25)
[2018-01-24] MEDS: PANTOPRAZOLE SODIUM 40 MG DR TABLET PO SCH (08:19)
[2018-01-24 08:25] LABS: URIC ACID 9.6 mg/dL (2.6-7.2)
[2018-01-24] MEDS: MetroNIDAZOLE 250 MG/NACL 50 ML IV SCH ×2 (10:41→17:33)
[2018-01-24] MEDS: DEXTROSE 5%-0.9% SODIUM CHL 1,000 ML IV SCH (10:46)
[2018-01-24 11:40] VITALS: BP 114/56
[2018-01-24] MEDS: PIPERACILLIN SODIUM/TAZOBACTAM 2.25 GM in DEXTROSE 5%-WATER 50 ML IV SCH ×3 (12:05→23:30)
[2018-01-24 15:38] VITALS: BP 125/65
[2018-01-24 19:16] VITALS: BP 121/66
[2018-01-25] MEDS: ALBUMIN HUMAN 25%-25GM/100ML 100 ML IV SCH ×4 (01:07→17:30)
[2018-01-25] MEDS: MetroNIDAZOLE 250 MG/NACL 50 ML IV SCH ×3 (02:37→17:37)
[2018-01-25 03:37] VITALS: BP 105/57
[2018-01-25] MEDS ORDERED: 0.9% SODIUM CHLORIDE 5 ML NEB SOLUTION NEB ONE ×3 (04:40→19:53)
[2018-01-25] MEDS: ALBUTEROL SULFATE 2.5 MG/0.5 ML NEB SOLUTION NEB PRN ×3 (04:41→19:56)
[2018-01-25] MEDS: PIPERACILLIN SODIUM/TAZOBACTAM 2.25 GM in DEXTROSE 5%-WATER 50 ML IV SCH ×4 (05:16→23:24)
[2018-01-25 06:37] LABS: BASOPHILS % (AUTO) 0.6 % (0.0-2.0); HEMATOCRIT 28.3 % (41-53); HEMOGLOBIN 9.4 g/dL (13.5-17.5); LYMPHOCYTES # (AUTO) 0.4 K/uL (1.0-4.8); LYMPHOCYTES % (AUTO) 4.3 % (22.0-44.0); MEAN CORPUSCULAR HEMOGLOBIN 30.8 pg (26.0-34.0); MEAN CORPUSCULAR HGB CONC 33.2 G/dL (31.0-37.0); MEAN CORPUSCULAR VOLUME 93 fL (80-100); MONOCYTES % (AUTO) 12.2 % (2.0-9.0); NEUTROPHILS # (AUTO) 6.5 K/uL (1.8-7.7); NEUTROPHILS % (AUTO) 80.9 % (40.0-70.0); RED BLOOD CELL COUNT(AUTO) 3.05 MIL/uL (4.50-5.90); RED CELL DISTRIBUTION WIDTH 16.7 % (11.5-14.5)
[2018-01-25 06:55] LABS: PLATELET COUNT (AUTO) 70 K/uL (150-450)
[2018-01-25 07:27] VITALS: BP 129/65
[2018-01-25 07:29] LABS: ALBUMIN 4.5 g/dL (3.4-5.0); BILIRUBIN,TOTAL 1.7 mg/dL (0.1-1.0); CALCIUM, TOTAL 8.9 mg/dL (8.8-10.5); MAGNESIUM 2.6 mg/dL (1.80-2.40); POTASSIUM 4.8 mmol/L (3.5-5.1); TOTAL PROTEIN, SERUM 7.7 g/dL (6.4-8.2)
[2018-01-25] MEDS: DOCUSATE SODIUM 100 MG CAPSULE PO SCH ×3 (08:03→20:42)
[2018-01-25] MEDS: CARVEDILOL 6.25 MG TABLET PO SCH ×2 (08:24→20:38)
[2018-01-25] MEDS: APIXABAN 2.5 MG TABLET PO SCH (08:24)
[2018-01-25] MEDS: PANTOPRAZOLE SODIUM 40 MG DR TABLET PO SCH (08:24)
[2018-01-25] MEDS: DEXTROSE 5%-0.9% SODIUM CHL 1,000 ML IV SCH ×2 (08:25→23:24)
[2018-01-25 11:39] VITALS: BP 98/53
[2018-01-25 15:44] VITALS: BP 114/66
[2018-01-25 18:14] LABS: CREATININE 3.61 mg/dL (0.60-1.30)
[2018-01-25 19:16] VITALS: BP 123/68
[2018-01-25 22:38] LABS: CREATININE,URINE RANDOM 117.3 mg/dL (30.0-125.0)
[2018-01-25 22:44] LABS: APPEARANCE,URINE CLOUDY (CLEAR); BILIRUBIN,URINE NEGATIVE (NEGATIVE); GLUCOSE, URINE (UA) NEGATIVE (NEGATIVE); KETONES,URINE TRACE mg/dL (NEGATIVE); LEUKOCYTE ESTERASE ,URINE SMALL (NEGATIVE); NITRATE,URINE NEGATIVE (NEGATIVE); OCCULT BLOOD,URINE NEGATIVE (NEGATIVE); PROTEIN,URINE SEE CONFIRM (NEGATIVE); UROBILINOGEN,URINE 0.2 mg/dL (<=1.0)
[2018-01-25 23:16] LABS: SULFOSALICYLIC ACID,URINE 2+ (Negative)
[2018-01-25 23:17] LABS: BACTERIA,URINE Few /HPF (None Seen); RBC,URINE 0-2 /HPF (0-2); SQUAMOUS EPITHELIAL CELL,UR Rare /LPF (None Seen)
[2018-01-25 23:28] VITALS: BP 120/59
[2018-01-26] MEDS: ALBUMIN HUMAN 25%-25GM/100ML 100 ML IV SCH ×2 (00:35→05:49)
[2018-01-26] MEDS ORDERED: 0.9% SODIUM CHLORIDE 5 ML NEB SOLUTION NEB ONE ×3 (01:05→20:17)
[2018-01-26] MEDS: ALBUTEROL SULFATE 2.5 MG/0.5 ML NEB SOLUTION NEB PRN ×3 (01:09→20:20)
[2018-01-26] MEDS: MetroNIDAZOLE 250 MG/NACL 50 ML IV SCH ×3 (02:02→17:36)
[2018-01-26] MEDS: PIPERACILLIN SODIUM/TAZOBACTAM 2.25 GM in DEXTROSE 5%-WATER 50 ML IV SCH ×3 (03:57→20:40)
[2018-01-26 04:19] VITALS: BP 113/78
[2018-01-26 07:28] LABS: BASOPHILS % (AUTO) 0.5 % (0.0-2.0); EOSINOPHILS % (AUTO) 1.7 % (1.0-6.0); HEMATOCRIT 26.8 % (41-53); LYMPHOCYTES # (AUTO) 0.4 K/uL (1.0-4.8); LYMPHOCYTES % (AUTO) 5.6 % (22.0-44.0); MEAN CORPUSCULAR HEMOGLOBIN 30.9 pg (26.0-34.0); MEAN CORPUSCULAR HGB CONC 33.6 G/dL (31.0-37.0); MEAN CORPUSCULAR VOLUME 92 fL (80-100); MONOCYTES # (AUTO) 0.8 K/uL (0.1-1.0); NEUTROPHILS # (AUTO) 5.4 K/uL (1.8-7.7); NEUTROPHILS % (AUTO) 80.2 % (40.0-70.0); PLATELET COUNT (AUTO) 48 K/uL (150-450); RED BLOOD CELL COUNT(AUTO) 2.92 MIL/uL (4.50-5.90)
[2018-01-26 07:29] VITALS: BP 134/77
[2018-01-26 07:46] LABS: ALBUMIN 5.3 g/dL (3.4-5.0); BILIRUBIN,TOTAL 1.6 mg/dL (0.1-1.0); CALCIUM, TOTAL 9.2 mg/dL (8.8-10.5); CREATININE 4.68 mg/dL (0.60-1.30); MAGNESIUM 2.7 mg/dL (1.80-2.40); PHOSPHORUS 6.3 mg/dL (2.5-4.9); POTASSIUM 4.9 mmol/L (3.5-5.1); TOTAL PROTEIN, SERUM 8.3 g/dL (6.4-8.2)
[2018-01-26] MEDS: CARVEDILOL 6.25 MG TABLET PO SCH ×2 (09:08→20:41)
[2018-01-26] MEDS: DOCUSATE SODIUM 100 MG CAPSULE PO SCH ×2 (09:08→20:42)
[2018-01-26] MEDS: PANTOPRAZOLE SODIUM 40 MG DR TABLET PO SCH (09:08)
[2018-01-26 09:35] LABS: CALCIUM, TOTAL 9.2 mg/dL (8.8-10.5); CREATININE 4.8 mg/dL (0.60-1.30); POTASSIUM 4.9 mmol/L (3.5-5.1)
[2018-01-26 09:39] LABS: ALBUMIN 5.3 g/dL (3.4-5.0); BILIRUBIN,TOTAL 1.6 mg/dL (0.1-1.0); TOTAL PROTEIN, SERUM 8.2 g/dL (6.4-8.2)
[2018-01-26 11:21] VITALS: BP 123/69
[2018-01-26] MEDS ORDERED: FUROSEMIDE 40 MG/4 ML VIAL IVP ONE (11:45)
[2018-01-26] MEDS ORDERED: LIDOCAINE HCL/PF 1% 30 ML VIAL ONE (14:54)
[2018-01-26] MEDS ORDERED: HEPARIN SODIUM 1000 UNITS/NS 500 ML ONE (14:55)
[2018-01-26] MEDS ORDERED: HEPARIN SODIUM,PORCINE 1,000 UNITS/ML 10 ML VIAL ONE (14:55)
[2018-01-26] MEDS ORDERED: SODIUM CHLORIDE 0.9% 2,000 ML IV ONE (17:07)
[2018-01-26 20:32] VITALS: BP 129/74
[2018-01-26 21:23] LABS: ABG A-A DIFF O2 86.8 mmHg (10-20.0); ABG BASE EXCESS -7.5 mmol/L (-2.0-3.0); ABG CARBOXYHEMOGLOBIN 1.7 % (0.0-1.5); ABG METHEMOGLOBIN 0.5 % (0.0-1.5); ABG OXYGEN CONTENT 13.2 mL/dL (15.0-23.0); ABG OXYGEN SATURATION 95.2 % (95.0-98.0); ABG OXYHEMOGLOBIN 93.1 % (94.0-100.0); ABG PCO2 30 mmHg (35-45); ABG PH 7.387 (7.35-7.450); SOURCE, BLOOD GAS ARTERIAL; TEMPERATURE, FAHRENHEIT, BG 97.8 FAHREN (96.0-98.6)
[2018-01-26 21:25] LABS: O2 DEVICE,BLOOD GAS CANNULA (ROOM AIR); SITE, BLOOD GAS LFT RADIAL
[2018-01-27] VITALS (7 sets, daily range): BP systolic 100–135; BP diastolic 45–64
[2018-01-27] MEDS: MetroNIDAZOLE 250 MG/NACL 50 ML IV SCH ×3 (01:29→19:04)
[2018-01-27] MEDS: PIPERACILLIN SODIUM/TAZOBACTAM 2.25 GM in DEXTROSE 5%-WATER 50 ML IV SCH ×3 (04:17→21:01)
[2018-01-27 06:54] LABS: ALBUMIN 4.5 g/dL (3.4-5.0); BILIRUBIN,TOTAL 1.8 mg/dL (0.1-1.0); CALCIUM, TOTAL 9.1 mg/dL (8.8-10.5); CREATININE 4.46 mg/dL (0.60-1.30); POTASSIUM 4.2 mmol/L (3.5-5.1); TOTAL PROTEIN, SERUM 7.6 g/dL (6.4-8.2)
[2018-01-27] MEDS: PANTOPRAZOLE SODIUM 40 MG DR TABLET PO SCH (08:59)
[2018-01-27] MEDS: DOCUSATE SODIUM 100 MG CAPSULE PO SCH ×2 (08:59→21:00)
[2018-01-27] MEDS: CARVEDILOL 6.25 MG TABLET PO SCH ×2 (09:00→21:00)
[2018-01-27] MEDS: EPOETIN ALFA 10,000 UNITS/ML VIAL SQ SCH (16:35)
[2018-01-27] MEDS: MORPHINE SULFATE 4 MG/ML SYRINGE IVP PRN (16:36)
[2018-01-27] MEDS ORDERED: 0.9% SODIUM CHLORIDE 5 ML NEB SOLUTION NEB ONE (16:56)
[2018-01-27] MEDS: ALBUTEROL SULFATE 2.5 MG/0.5 ML NEB SOLUTION NEB PRN (17:03)
[2018-01-27] MEDS ORDERED: HEPARIN SODIUM,PORCINE 1,000 UNITS/ML VIAL ONE (17:53)
[2018-01-27] MEDS ORDERED: MANNITOL 25%-12.5 GM/50 ML VIAL IVP PRN (19:15)
[2018-01-27] MEDS ORDERED: HEPARIN SODIUM,PORCINE 1,000 UNITS/ML VIAL IVP ONE ×2 (19:15)
[2018-01-28] MEDS: MetroNIDAZOLE 250 MG/NACL 50 ML IV SCH ×3 (01:25→17:40)
[2018-01-28] MEDS: PIPERACILLIN SODIUM/TAZOBACTAM 2.25 GM in DEXTROSE 5%-WATER 50 ML IV SCH ×3 (03:23→20:36)
[2018-01-28 05:27] VITALS: BP 100/49
[2018-01-28 06:40] LABS: % IRON SATURATION 31.7 % (30-44); BASOPHILS % (AUTO) 0.6 % (0.0-2.0); EOSINOPHILS % (AUTO) 2.6 % (1.0-6.0); HEMATOCRIT 25.6 % (41-53); HEMOGLOBIN 8.8 g/dL (13.5-17.5); LYMPHOCYTES # (AUTO) 0.5 K/uL (1.0-4.8); LYMPHOCYTES % (AUTO) 7.6 % (22.0-44.0); MEAN CORPUSCULAR HEMOGLOBIN 30.9 pg (26.0-34.0); MEAN CORPUSCULAR HGB CONC 34.2 G/dL (31.0-37.0); MEAN CORPUSCULAR VOLUME 90 fL (80-100); MONOCYTES # (AUTO) 1.2 K/uL (0.1-1.0); MONOCYTES % (AUTO) 16.2 % (2.0-9.0); NEUTROPHILS # (AUTO) 5.2 K/uL (1.8-7.7); PLATELET COUNT (AUTO) 59 K/uL (150-450); RED BLOOD CELL COUNT(AUTO) 2.83 MIL/uL (4.50-5.90); RED CELL DISTRIBUTION WIDTH 16.7 % (11.5-14.5)
[2018-01-28 06:41] LABS: INR 1.8 (0.9-1.1); PROTHROMBIN TIME 18.7 SEC (9.4-11.6)
[2018-01-28 06:55] LABS: CALCIUM, TOTAL 8.6 mg/dL (8.8-10.5); CREATININE 4.11 mg/dL (0.60-1.30); MAGNESIUM 1.9 mg/dL (1.80-2.40); POTASSIUM 3.8 mmol/L (3.5-5.1)
[2018-01-28 07:29] LABS: PHOSPHORUS 4.3 mg/dL (2.5-4.9)
[2018-01-28 07:46] VITALS: BP 100/57
[2018-01-28] MEDS: CARVEDILOL 6.25 MG TABLET PO SCH (09:00)
[2018-01-28] MEDS: DOCUSATE SODIUM 100 MG CAPSULE PO SCH ×2 (09:00→20:35)
[2018-01-28] MEDS: PANTOPRAZOLE SODIUM 40 MG DR TABLET PO SCH (09:15)
[2018-01-28 11:28] VITALS: BP 108/44
[2018-01-28] MEDS ORDERED: PHYTONADIONE 10 MG/1 ML AMP SQ SCH (11:45)
[2018-01-28] MEDS: PHYTONADIONE 5 MG in SODIUM CHLORIDE 0.9% 50 ML IV SCH (13:16)
[2018-01-28 16:01] VITALS: BP 100/44
[2018-01-28 20:10] VITALS: BP 112/58
[2018-01-28] MEDS: CARVEDILOL 3.125 MG TABLET PO SCH (20:35)
[2018-01-29] VITALS (7 sets, daily range): BP systolic 92–122; BP diastolic 43–68
[2018-01-29] MEDS ORDERED: SODIUM CHLORIDE 0.9% 100 ML ONE (01:43)
[2018-01-29] MEDS: MetroNIDAZOLE 250 MG/NACL 50 ML IV SCH ×4 (01:52→18:16)
[2018-01-29] MEDS: PIPERACILLIN SODIUM/TAZOBACTAM 2.25 GM in DEXTROSE 5%-WATER 50 ML IV SCH ×3 (03:11→21:54)
[2018-01-29 06:59] LABS: BASOPHILS % (AUTO) 0.6 % (0.0-2.0); HEMATOCRIT 27.8 % (41-53); HEMOGLOBIN 9.4 g/dL (13.5-17.5); LYMPHOCYTES # (AUTO) 0.9 K/uL (1.0-4.8); LYMPHOCYTES % (AUTO) 10.7 % (22.0-44.0); MEAN CORPUSCULAR HEMOGLOBIN 30.8 pg (26.0-34.0); MEAN CORPUSCULAR HGB CONC 33.8 G/dL (31.0-37.0); MEAN CORPUSCULAR VOLUME 91 fL (80-100); MONOCYTES # (AUTO) 1.1 K/uL (0.1-1.0); NEUTROPHILS # (AUTO) 5.9 K/uL (1.8-7.7); NEUTROPHILS % (AUTO) 72.7 % (40.0-70.0); PLATELET COUNT (AUTO) 65 K/uL (150-450); RED BLOOD CELL COUNT(AUTO) 3.06 MIL/uL (4.50-5.90); RED CELL DISTRIBUTION WIDTH 16.6 % (11.5-14.5)
[2018-01-29 07:19] LABS: INR 1.5 (0.9-1.1); PROTHROMBIN TIME 15.1 SEC (9.4-11.6)
[2018-01-29] MEDS ORDERED: FentaNYL CITRATE-PF 100 MCG/2 ML VIAL ONE (08:57)
[2018-01-29] MEDS ORDERED: NALOXONE HCL 0.4 MG/ML VIAL ONE (08:57)
[2018-01-29] MEDS ORDERED: FLUMAZENIL 0.1 MG/ML 5 ML VIAL IVP ONE (08:57)
[2018-01-29] MEDS ORDERED: MIDAZOLAM HCL 2 MG/2 ML VIAL ONE (08:57)
[2018-01-29] MEDS ORDERED: FUROSEMIDE 40 MG/4 ML VIAL IVP ONE (09:00)
[2018-01-29] MEDS: CARVEDILOL 3.125 MG TABLET PO SCH ×2 (09:00→21:00)
[2018-01-29] MEDS: DOCUSATE SODIUM 100 MG CAPSULE PO SCH ×2 (09:00→21:00)
[2018-01-29] MEDS ORDERED: FentaNYL CITRATE-PF 100 MCG/2 ML VIAL IVP ONE (09:37)
[2018-01-29] MEDS ORDERED: MIDAZOLAM HCL 2 MG/2 ML VIAL IVP ONE (09:37)
[2018-01-29] MEDS ORDERED: GELATIN SPONGE,ABSORBABLE 12-7 MM TP ONE (09:40)
[2018-01-29] MEDS: MORPHINE SULFATE 4 MG/ML SYRINGE IVP PRN (11:23)
[2018-01-29] MEDS: PANTOPRAZOLE SODIUM 40 MG DR TABLET PO SCH (11:23)
[2018-01-29] MEDS ORDERED: SODIUM CHLORIDE 0.9% 0 ML IV ONE (16:10)
[2018-01-29] MEDS: PHYTONADIONE 5 MG in SODIUM CHLORIDE 0.9% 50 ML IV SCH (17:22)
[2018-01-29] MEDS ORDERED: HEPARIN SODIUM,PORCINE 1,000 UNITS/ML VIAL IVP ONE (17:54)
[2018-01-30 00:25] VITALS: BP 104/49
[2018-01-30] MEDS: MetroNIDAZOLE 250 MG/NACL 50 ML IV SCH ×3 (02:20→18:11)
[2018-01-30] MEDS: PIPERACILLIN SODIUM/TAZOBACTAM 2.25 GM in DEXTROSE 5%-WATER 50 ML IV SCH ×3 (04:54→21:11)
[2018-01-30] MEDS ORDERED: SODIUM CHLORIDE 0.9% 100 ML ONE (04:57)
[2018-01-30 05:21] VITALS: BP 100/51
[2018-01-30 06:54] LABS: BASOPHILS % (AUTO) 0.5 % (0.0-2.0); EOSINOPHILS % (AUTO) 3.2 % (1.0-6.0); HEMATOCRIT 23.2 % (41-53); HEMOGLOBIN 7.8 g/dL (13.5-17.5); LYMPHOCYTES # (AUTO) 0.9 K/uL (1.0-4.8); LYMPHOCYTES % (AUTO) 9.8 % (22.0-44.0); MEAN CORPUSCULAR HEMOGLOBIN 30.9 pg (26.0-34.0); MEAN CORPUSCULAR HGB CONC 33.8 G/dL (31.0-37.0); MEAN CORPUSCULAR VOLUME 92 fL (80-100); MONOCYTES # (AUTO) 0.9 K/uL (0.1-1.0); MONOCYTES % (AUTO) 10.1 % (2.0-9.0); NEUTROPHILS # (AUTO) 6.8 K/uL (1.8-7.7); NEUTROPHILS % (AUTO) 76.4 % (40.0-70.0); PLATELET COUNT (AUTO) 77 K/uL (150-450); RED BLOOD CELL COUNT(AUTO) 2.54 MIL/uL (4.50-5.90); RED CELL DISTRIBUTION WIDTH 16.6 % (11.5-14.5)
[2018-01-30 07:39] LABS: CALCIUM, TOTAL 8.3 mg/dL (8.8-10.5); CREATININE 3.96 mg/dL (0.60-1.30); MAGNESIUM 1.8 mg/dL (1.80-2.40); PHOSPHORUS 5.1 mg/dL (2.5-4.9); POTASSIUM 3.9 mmol/L (3.5-5.1)
[2018-01-30 08:13] VITALS: BP 120/44
[2018-01-30] MEDS: CARVEDILOL 3.125 MG TABLET PO SCH ×2 (08:25→21:00)
[2018-01-30] MEDS: MORPHINE SULFATE 4 MG/ML SYRINGE IVP PRN ×2 (08:51→12:42)
[2018-01-30] MEDS: DOCUSATE SODIUM 100 MG CAPSULE PO SCH ×2 (09:00→21:00)
[2018-01-30] MEDS ORDERED: FUROSEMIDE 40 MG/4 ML VIAL IVP ONE (09:00)
[2018-01-30] MEDS: EPOETIN ALFA 10,000 UNITS/ML VIAL SQ SCH (09:04)
[2018-01-30] MEDS: PANTOPRAZOLE SODIUM 40 MG/VIAL IVP SCH (09:04)
[2018-01-30] MEDS: ACETAMINOPHEN 1000 MG/ISO-OSM 100 ML IV SCH ×3 (09:44→21:47)
[2018-01-30 11:02] VITALS: BP 105/40
[2018-01-30] MEDS: PHYTONADIONE 5 MG in SODIUM CHLORIDE 0.9% 50 ML IV SCH (12:26)
[2018-01-30 16:31] VITALS: BP 99/42
[2018-01-30 17:09] LABS: C.DIFF GDH ANTIGEN, Stool Negative (Negative); C.DIFF TOXINS A&B, Stool Negative (Negative)
[2018-01-30 19:27] VITALS: BP 105/44
[2018-01-31 00:09] VITALS: BP 102/43
[2018-01-31] MEDS: MetroNIDAZOLE 250 MG/NACL 50 ML IV SCH ×2 (03:30→12:29)
[2018-01-31 04:00] VITALS: BP 94/46
[2018-01-31] MEDS: ACETAMINOPHEN 1000 MG/ISO-OSM 100 ML IV SCH ×2 (04:54→11:58)
[2018-01-31] MEDS ORDERED: SODIUM CHLORIDE 0.9% 250 ML IV ONE (05:10)
[2018-01-31] MEDS: PIPERACILLIN SODIUM/TAZOBACTAM 2.25 GM in DEXTROSE 5%-WATER 50 ML IV SCH ×2 (05:27→13:45)
[2018-01-31 07:27] LABS: BASOPHILS % (AUTO) 0.8 % (0.0-2.0); EOSINOPHILS % (AUTO) 2.6 % (1.0-6.0); HEMATOCRIT 22.5 % (41-53); HEMOGLOBIN 7.6 g/dL (13.5-17.5); LYMPHOCYTES # (AUTO) 0.9 K/uL (1.0-4.8); LYMPHOCYTES % (AUTO) 10.2 % (22.0-44.0); MEAN CORPUSCULAR HEMOGLOBIN 31.3 pg (26.0-34.0); MEAN CORPUSCULAR HGB CONC 33.7 G/dL (31.0-37.0); MEAN CORPUSCULAR VOLUME 93 fL (80-100); MONOCYTES # (AUTO) 0.8 K/uL (0.1-1.0); MONOCYTES % (AUTO) 9.6 % (2.0-9.0); NEUTROPHILS # (AUTO) 6.6 K/uL (1.8-7.7); NEUTROPHILS % (AUTO) 76.8 % (40.0-70.0); PLATELET COUNT (AUTO) 81 K/uL (150-450); RED BLOOD CELL COUNT(AUTO) 2.42 MIL/uL (4.50-5.90); RED CELL DISTRIBUTION WIDTH 17.1 % (11.5-14.5)
[2018-01-31 07:37] LABS: CALCIUM, TOTAL 8.4 mg/dL (8.8-10.5); CREATININE 5.95 mg/dL (0.60-1.30); MAGNESIUM 2.1 mg/dL (1.80-2.40); PHOSPHORUS 8.5 mg/dL (2.5-4.9); POTASSIUM 4.4 mmol/L (3.5-5.1)
[2018-01-31] MEDS: DOCUSATE SODIUM 100 MG CAPSULE PO SCH (07:47)
[2018-01-31 07:55] VITALS: BP 105/50
[2018-01-31 11:13] VITALS: BP 118/61
[2018-01-31] MEDS: PANTOPRAZOLE SODIUM 40 MG/VIAL IVP SCH (11:57)
[2018-01-31] MEDS: CARVEDILOL 3.125 MG TABLET PO SCH (11:58)
[2018-01-31 15:16] VITALS: BP 105/46
[2018-01-31] MEDS ORDERED: CARV3 PO (16:09)
[2018-01-31] MEDS ORDERED: DSS100 PO (16:10)
[2018-01-31] MEDS ORDERED: METR250 IV (16:10)
[2018-01-31] MEDS ORDERED: ZOSY225FZ IV (16:12)
[2018-01-31] MEDS ORDERED: ALBU6.7H IH (16:17)
[2018-01-31] MEDS ORDERED: BISA10S PR (16:17)
[2018-01-31] MEDS ORDERED: MANNITOL 25%-12.5 GM/50 ML VIAL IVP ONE (17:54)
[2018-01-31] MEDS ORDERED: HEPARIN SODIUM,PORCINE 1,000 UNITS/ML VIAL IVP ONE (17:54)
[2018-01-31] MEDS ORDERED: ALBUMIN HUMAN 25%-12.5GM/50ML IV BOTTLE IV ONE (17:54)
[2018-01-31 19:45] LABS: OVA AND PARASITES EXAM Final report
== END 2018-01-31 17:55 | disposition hospice, home (50) | DRG 441 ==
LOC: EMS 14:19 → 5S 18:29 → 5N 01-29 10:23
PROVIDERS: ADMIT Internal Medicine; ATTEND Internal Medicine
PROC: 5A1D70Z Performance of Urinary Filtration, Intermittent, Less than 6 Hours Per Day (ICD-10-PCS; 2018-01-26)
PROC: 02HV33Z Insertion of Infusion Device into Superior Vena Cava, Percutaneous Approach (ICD-10-PCS; 2018-01-26)
PROC: B543ZZA Ultrasonography of Right Jugular Veins, Guidance (ICD-10-PCS; 2018-01-26)
PROC: B518ZZA Fluoroscopy of Superior Vena Cava, Guidance (ICD-10-PCS; 2018-01-26)
PROC: 5A1D70Z Performance of Urinary Filtration, Intermittent, Less than 6 Hours Per Day (ICD-10-PCS; 2018-01-27)
PROC: 0FB23ZX Excision of Left Lobe Liver, Percutaneous Approach, Diagnostic (ICD-10-PCS; principal; 2018-01-29)
PROC: 5A1D70Z Performance of Urinary Filtration, Intermittent, Less than 6 Hours Per Day (ICD-10-PCS; 2018-01-29)
PROC: 5A1D70Z Performance of Urinary Filtration, Intermittent, Less than 6 Hours Per Day (ICD-10-PCS; 2018-01-31)
DX: K75.0 Abscess of liver (principal); E43 Unspecified severe protein-calorie malnutrition; N17.0 Acute kidney failure with tubular necrosis; I13.2 Hypertensive heart and chronic kidney disease with heart failure and with stage 5 chronic kidney disease, or end stage renal disease; I48.2 Chronic atrial fibrillation; I08.3 Combined rheumatic disorders of mitral, aortic and tricuspid valves; N18.6 End stage renal disease; Z95.1 Presence of aortocoronary bypass graft; E87.1 Hypo-osmolality and hyponatremia; R64 Cachexia; J47.9 Bronchiectasis, uncomplicated; I50.9 Heart failure, unspecified; I65.29 Occlusion and stenosis of unspecified carotid artery; I25.10 Atherosclerotic heart disease of native coronary artery without angina pectoris; R74.8 Abnormal levels of other serum enzymes; R79.89 Other specified abnormal findings of blood chemistry; D46.9 Myelodysplastic syndrome, unspecified; E55.9 Vitamin D deficiency, unspecified; E78.00 Pure hypercholesterolemia, unspecified; E78.5 Hyperlipidemia, unspecified; I87.2 Venous insufficiency (chronic) (peripheral); I87.8 Other specified disorders of veins; R94.5 Abnormal results of liver function studies; R09.02 Hypoxemia; R79.1 Abnormal coagulation profile; R62.7 Adult failure to thrive; Z51.5 Encounter for palliative care; Z99.2 Dependence on renal dialysis; Z90.49 Acquired absence of other specified parts of digestive tract; I25.2 Old myocardial infarction; Z79.01 Long term (current) use of anticoagulants; Z79.899 Other long term (current) drug therapy
CPT/HCPCS: 36245; 36556; 47000; 71250; 74022; 74177; 76000; 76700; 76770; 76937; 82105; 82378; 82565; 82570; 82728; 82805; 83540; 83550; 83735; 84100; 84145; 84156; 84300; 84520; 84540; 84550; 85651; 86301; 87015; 87040; 87070; 87081; 87101; 87176; 87177; 87205; 87206; 87209; 87324; 87340; 87449; 88307; 88312; 88313; 89055; 92610; 93005; 93306; 94640; 97161; 99285; C9113; J0131; J0885; J1644; J1940; J2150; J2250; J2270; J2310; J2543; J3010; J3430; J3490; J7030; J7042; J7050; J7060; P9046; P9047